=== PATIENT | male | born 1935 | race Two or more races ===

== ENCOUNTER 2020-07-01 22:25 | Inpatient (IN) | payer MEDICARE, MEDICAID ==
[~2020-07-01] VITALS: Ht 165.1 cm; Wt 75.3 kg
--- NOTE | 2020-07-01 22:34 | NUR ---
betty 839 from home c/o rectal bleeing and vomiting. was recently discharge from [facility] for UTI. pt aaox2-3, dominican speaking. placed on monitor, not in acute distress, -sob. vss. pending er provider missy
[2020-07-01] MEDS ORDERED: IV NS 0.9% 500 ML BAG IV ONE (23:00)
[2020-07-01 23:38] LABS: ALANINE AMINOTRANSFERASE 11 U/L (12-78); ALBUMIN 2.2 g/dL (3.4-5.0); ALKALINE PHOSPHATASE 66 U/L (46-116); ASPARTATE AMINOTRANSFERASE 15 U/L (15-37); BILIRUBIN,DIRECT 0.1 mg/dL (0.0-0.2); BILIRUBIN,TOTAL 0.5 mg/dL (0.2-1.0); CALCIUM, SERUM 6.4 mg/dL (8.5-10.1); CARBON DIOXIDE 20 mmol/L (21-32); CHLORIDE 95 mmol/L (98-107); GLUCOSE 248 mg/dL (74-106); POTASSIUM 4.7 mmol/L (3.5-5.1); SODIUM SERUM 133 mmol/L (136-145); TOTAL PROTEIN, SERUM 6.3 g/dL (6.4-8.2)
--- NOTE | 2020-07-01 23:40 | NUR ---
covid swab sent to lab
[2020-07-01 23:42] LABS: CREATININE 13.5 mg/dL (0.6-1.3); UREA NITROGEN, BLOOD 106 mg/dL (7-18)
--- NOTE | 2020-07-01 23:42 | NUR ---
BUN 106 CRE 13.5
[2020-07-02] VITALS (14 sets, daily range): BP systolic 108–137; BP diastolic 48–90
[2020-07-02 00:07] LABS: BASOPHILS # (AUTO) 0.1 /CMM (0.0-0.2); BASOPHILS % (AUTO) 1.4 % (0.0-2.0); LYMPHOCYTES # (AUTO) 1.1 /CMM (0.8-4.8); LYMPHOCYTES % (AUTO) 12.3 % (20.0-44.0); MEAN CORPUSCULAR HGB CONC 34 g/dl (31.0-36.0); MEAN CORPUSCULAR VOLUME 99 fL (80-96); MONOCYTES # (AUTO) 0.7 /CMM (0.1-1.30); MONOCYTES % (AUTO) 7.9 % (2.0-12.0); NEUTROPHILS # (AUTO) 6.9 /CMM (1.8-8.9); NEUTROPHILS % (AUTO) 77.4 % (43.0-81.0); PLATELET COUNT (AUTO) 338 /CMM (150-450); WHITE BLOOD COUNT (AUTO) 8.9 K/uL (4.3-11.0)
[2020-07-02 00:09] LABS: RED BLOOD CELL COUNT(AUTO) 1.72 MIL/uL (4.5-6.0)
[2020-07-02 00:10] LABS: HEMOGLOBIN 5.7 g/dL (13.5-17.5)
[2020-07-02 00:11] LABS: HEMATOCRIT 17 % (39-51)
[2020-07-02] MEDS ORDERED: ACETAMINOPHEN 325 MG TABLET PO PRN (00:30)
[2020-07-02] MEDS ORDERED: ONDANSETRON HCL/PF 4 MG/2 ML VIAL IVP PRN (00:30)
[2020-07-02] MEDS ORDERED: MAG HYDROX/AL HYDROX/SIMETH 30 ML UDC PO PRN (00:30)
[2020-07-02] MEDS ORDERED: ZOLPIDEM TARTRATE 5 MG TABLET PO PRN (00:30)
[2020-07-02] MEDS ORDERED: MAGNESIUM HYDROXIDE 30 ML UDC PO PRN (00:30)
[2020-07-02] MEDS ORDERED: Z GUARD REMEDY 2 OZ OINT TP PRN (00:30)
[2020-07-02] MEDS ORDERED: IV NS 0.9% 1,000 ML IV PRN (00:30)
--- NOTE | 2020-07-02 00:51 | NUR ---
CALL FROM LAB. RAPID COVID NEGATIVE.
--- NOTE | 2020-07-02 00:51 | NUR ---
CALL FROM LAB. RAPID COVID NEGATIVE.
[2020-07-02 01:51] LABS: LYMPHOCYTES % (MANUAL) 7 % (16-48); MONOCYTES % (MANUAL) 9 % (0-11.0); NEUTROPHILS % (MANUAL) 84 (42-76)
--- NOTE | 2020-07-02 02:15 | NUR ---
PATIENT CAME FROM ER, AWAKE, SLIGHTLY LETHARGIC,OPENS EYES WHEN HE TALKED. NO S/S OF DISTRESS NOTED. CALL LIGHT WITHIN REACH. BED ALARM ON. BED IN LOWEST AND LOCKED POSITION. BLOOD TRANSFUSION IS RUNNING AT 125 ML/ HOUR. WITH LEFT ARM AV FISTULA, WITH BRUIT AND THRILL SENSATION. NO RECTAL BLEEDING NOTED. HOB ELEVATED. NPO.
--- NOTE | 2020-07-02 02:16 | NUR ---
REPORT GIVEN TO ABY RN, PT TRANSPORTED 3RD FLOOR
--- NOTE | 2020-07-02 03:50 | NUR ---
BLOOD TRANSFUSION IS FINISHED. NS IS FLUSHING. NO ADVERSE REACTIONS NOTED. V/S TAKEN AND RECORDED.
[2020-07-02] MEDS ORDERED: CEFTRIAXONE 1 G VIAL ONE (05:28)
[2020-07-02] MEDS: CEFTRIAXONE 1 G in IV D5W 50 ML IV SCH (05:54)
--- NOTE | 2020-07-02 07:00 | NUR ---
TIER LIFT OPERATOR OPENING NOTES RECEIVED PT AWAKE IN BED AT THIS TIME. AOX2-3. TUNISIAN SPEAKING. NO SOB NOTED, NO S/O ANY ACUTE DISTRESS NOTED, NO C/O OF PAIN AT THIS TIME. PT NOTED OM 2LPM OXYGEN VIA NC. RESPIRATIONS EVEN AND UNLABORED. PT ON EXTERNAL CARDIA TELE MONITOR READING 1ST DEGREE AVB WITH PACS/PVCS. IV ACCESS IN PHOEBE G#20 INTACT, PATENT AND FLUSHING WELL. JAZMIN AV FISTULA NOTED, AUSCULTATED A BRUIT AND FELT A THRILL. SAFETY PRECAUTIONS IN PLACE AND MAINTAINED AT ALL TIMES. BED IN LOWEST LOCKED POSITION, HOB ELEVATED, SIDE RAILS UP X 2. CALL LIGHT AND TABLE WITHIN REACH. WILL CONTINUE TO MONITOR
--- NOTE | 2020-07-02 07:38 | NUR ---
WOUND CARE CONSULT: PT ADAMANTLY REFUSED TO TURN FOR SKIN ASSESSMENT. ADMISSION PHOTO INDICATES SACRAL SCARRING. RECOMMENDATIONS MADE FOR SKIN PROTECTION. DISCUSSED WITH NURSING STAFF. MD IN AGREEMENT WITH PLAN OF CARE.
[2020-07-02] MEDS ORDERED: INSU100V7 PO (08:42)
[2020-07-02] MEDS ORDERED: FLUC100T8 PO (08:42)
[2020-07-02] MEDS ORDERED: POLY17PO4 PO (08:42)
[2020-07-02] MEDS ORDERED: PANT40TA49 PO (08:42)
[2020-07-02] MEDS ORDERED: TRAM50TA2 PO (08:42)
[2020-07-02] MEDS ORDERED: QUET25TA PO (08:42)
[2020-07-02] MEDS ORDERED: PIOG15TA8 PO (08:42)
[2020-07-02] MEDS ORDERED: LEVE500T20 PO (08:42)
[2020-07-02] MEDS ORDERED: BUDE10.2 INH (08:42)
[2020-07-02] MEDS ORDERED: ASPI-1420 PO (08:42)
[2020-07-02] MEDS ORDERED: INSU100V11 SQ (08:42)
[2020-07-02] MEDS ORDERED: METO25TA20 PO (08:42)
[2020-07-02] MEDS ORDERED: FOLI0.8T2 PO (08:42)
[2020-07-02] MEDS ORDERED: ATOR40TA PO (08:42)
[2020-07-02] MEDS ORDERED: TAMS-12 PO (08:42)
[2020-07-02] MEDS ORDERED: HYDR100T27 PO (08:42)
[2020-07-02] MEDS: HYDROCODONE/APAP 5/325MG TABLET PO PRN ×4 (08:44→21:06)
[2020-07-02] MEDS: PANTOPRAZOLE 40 MG VIAL IV SCH ×2 (08:52→17:18)
--- NOTE | 2020-07-02 08:52 | NUR ---
MS RN NOTES PATIENT COMPLAINED OF BACK PAIN 09/07. PT GIVEN NORCO ORDERED AND HEALTH TEACHING DONE REGARDING RELAXATION TECHNIQUES. PATIENT VERBALIZED UNDERSTANDING AND APPRECIATION. WILL MONITOR PT CLOSELY.
[2020-07-02] MEDS ORDERED: DEXTROSE 50%-WATER 50 ML DISP.SYRIN IV PRN (10:00)
[2020-07-02] MEDS ORDERED: POLYETHYLENE GLYCOL 3350 17 GM POWD.PACK PO PRN (10:00)
[2020-07-02] MEDS: VIT B CMPLX 3/FA/VIT C/BIOTIN 1 TAB TABLET PO SCH (10:15)
--- NOTE | 2020-07-02 10:39 | NUR ---
MS RN NOTES RECEIVED ORDER FROM DR. PAYNE FOR STAT CBC AND PROCEDURE FOR EGD/ ENDOSCOPY. ORDERS READ BACK TO DR. PAYNE AND CARRIED OUT. WILL CONTINUE MONITOR PT.
[2020-07-02] MEDS: LEVETIRACETAM (250 MG) 250 MG TABLET PO SCH ×2 (10:44→17:18)
--- NOTE | 2020-07-02 11:04 | NUR ---
MS RN NOTES RECEIVED A CALL FROM DAUGHTER ANA VAZ [phone]. MD ORDERS RELAYED TO DAUGHTER AND COSENT SECURED VERBALLY FRO PROCEDURE, BLOOD TRANSFUSION AND ANESTHESIA. CONSENT WITNESSED BY ANOTHER RN IMMACULATE. GRAYSON OF OPERATING ROOM NOTIFIED OF DAUGHTER'S CONSENT. AWAITING PICK-UP FOR PROCEDURE. PATIENT NOTIFIED AND VERBALIZED UNDERSTANDING. WILL CONTINUE MONITORING PATIENT.
[2020-07-02 11:31] LABS: BASOPHILS # (AUTO) 0.1 /CMM (0.0-0.2); BASOPHILS % (AUTO) 1.7 % (0.0-2.0); LYMPHOCYTES # (AUTO) 1.3 /CMM (0.8-4.8); LYMPHOCYTES % (AUTO) 15.5 % (20.0-44.0); MEAN CORPUSCULAR HGB CONC 34 g/dl (31.0-36.0); MEAN CORPUSCULAR VOLUME 97 fL (80-96); MONOCYTES # (AUTO) 0.8 /CMM (0.1-1.30); NEUTROPHILS # (AUTO) 5.8 /CMM (1.8-8.9); NEUTROPHILS % (AUTO) 70.8 % (43.0-81.0); PLATELET COUNT (AUTO) 326 /CMM (150-450); WHITE BLOOD COUNT (AUTO) 8.2 K/uL (4.3-11.0)
[2020-07-02 11:39] LABS: RED BLOOD CELL COUNT(AUTO) 1.89 MIL/uL (4.5-6.0)
[2020-07-02] MEDS ORDERED: ANESTHESIA TRAY IN PYXIS 1 EA TRAY MC ONE (11:40)
[2020-07-02 11:42] LABS: HEMATOCRIT 18 % (39-51); HEMOGLOBIN 6.3 g/dL (13.5-17.5)
[2020-07-02] MEDS: BLOOD SUGAR DIAGNOSTIC 1 EACH STRIP VI SCH ×3 (11:45→22:14)
[2020-07-02] MEDS: QUETIAPINE FUMARATE 25 MG TABLET PO SCH ×2 (13:27→17:18)
--- NOTE | 2020-07-02 13:35 | NUR ---
RECEIVED ORDER TO START PT ON DIABETIC DIET PER DR. MORALES. ORDERS ENTERED AND CARRIED OUT. WILL CONTINUE TO MONITOR PATIENT.
--- NOTE | 2020-07-02 15:58 | NUR ---
PATIENT C/O ACHING BACK PAIN ON A PAIN SCALE OF 7/10. VS WNL. PER PT REQUEST, NORCO 5-325MG PO Q4HR PRN FOR PAIN WAS ADMINISTERED PER ORDER. WILL CONTINUE TO MONITOR
--- NOTE | 2020-07-02 16:14 | NUR ---
PT SCHEDULED TO RECEIVE 1 UNIT OF BLOOD TRANSFUSION. PT EDUCATION PROVIDED AND TO REPORT ANY ADVERSE REACTIONS TO TRANSFUSION SUCH ACHES, SOB, FEVER, HIVES, CHILLS. PT VERBALIZED UNDERSTANDING. PRE-TRANSFUSION VS BP 109/64, HR 102, RR 20, T 97.8, SPO2 100% ON 2LPM VIA NC. BLOOD PICKED UP AND VERIFIED WITH REFRIGERATOR CRATER. BLOOD VERIFIED AT PATIENT'S BEDSIDE WITH ANOTHER NURSE AND REFERENCED WITH PATIENTS' IDENTIFIER (NAME/DATE OF ). NO S/O DISCOLORATION, NO CLOTTING, NO LEAKAGE NOTED. WILL CONTINUE WITH PLAN OF CARE
--- NOTE | 2020-07-02 16:15 | NUR ---
PT PROVIDED WITH [facility] BLOOD TRANSFUSION GUIDE. WILL CONTINUE WITH PLAN OF CARE
--- NOTE | 2020-07-02 16:16 | NUR ---
PT STARTED ON BLOOD TRANSFUSION AT THIS TIME. PT EDUCATION PROVIDED TO REPORT ANY ADVERSE REACTIONS TO TRANSFUSION SUCH ACHES, SOB, FEVER, HIVES, CHILLS. PT VERBALIZED UNDERSTANDING. VS BP 108/63, HR 103, RR 20, T 97.9, SPO2 99% ON 2LPM OXYGEN VIA NC. WILL CONTINUE TO MONITOR
--- NOTE | 2020-07-02 16:30 | NUR ---
PT ONGOING BLOOD TRANSFUSION AT THIS TIME. PT REMAINS AFEBRILE, NO REPORTS OF ANY ADVERSE REACTIONS TO TRANSFUSION, NO ACHES, NO SOB, NO FEVER, NO HIVES, NO CHILLS, VS BP 114/68, HR 95, RR 18, T 97.8, SPO2 96% ON 2LPM OXYGEN VIA NC. WILL CONTINUE TO MONITOR
--- NOTE | 2020-07-02 17:00 | NUR ---
PT ONGOING BLOOD TRANSFUSION AT THIS TIME. VS BP 116/71, HR 93, RR 18, T 98.3, SPO2 98% ON 2LPM OXYGEN VIA NC. PT REMAINS AFEBRILE, NO REPORTS OF ANY ADVERSE REACTIONS TO TRANSFUSION, NO ACHES, NO SOB, NO FEVER, NO HIVES, NO CHILLS, WILL CONTINUE TO MONITOR
[2020-07-02] MEDS: METOPROLOL TARTRATE 25 MG TABLET PO SCH (17:19)
[2020-07-02] MEDS: ATORVASTATIN 40 MG TABLET PO SCH (17:21)
[2020-07-02] MEDS: INSULIN REGULAR, HUMAN 100 UNIT/ML 3 ML VIAL SQ PRN (17:38)
--- NOTE | 2020-07-02 18:00 | NUR ---
BLOOD TRANSFUSION ONGOING AT THIS TIME AT THIS TIME. VS BP 137/62, HR 95, RR 18, T 97.6, SPO2 99% ON 2LPM OXYGEN VIA NC. PT REMAINS AFEBRILE, NO REPORTS OF ANY ADVERSE REACTIONS TO TRANSFUSION, NO ACHES, NO SOB, NO FEVER, NO HIVES, NO CHILLS, WILL CONTINUE TO MONITOR
--- NOTE | 2020-07-02 18:20 | NUR ---
BLOOD TRANSFUSION COMPLETED AT THIS TIME. VS BP 117/67, HR 86, RR 18, T 98.7, SPO2 96% ON 2LPM OXYGEN VIA NC. PT REMAINS AFEBRILE, NO REPORTS OF ANY ADVERSE REACTIONS TO TRANSFUSION, NO ACHES, NO SOB, NO FEVER, NO HIVES, NO CHILLS. PT TOLERATED TRANSFUSION WELL. WILL CONTINUE WITH PLAN OF CARE
--- NOTE | 2020-07-02 18:29 | NUR ---
MS RN CLOSING NOTES PT AWAKE IN BED AT THIS TIME. PT REMAINED STABLE THROUGHOUT SHIFT. ALL CARE, NEEDS, TREATMENT AND MEDICATIONS ADMINISTERED ANTICIPATED PER ORDER. PT KEPT CLEAN AND DRY. PAIN CONTROL ADMINISTERED PER ORDER. ASPIRATION, SEIZURE AND SAFETY PRECAUTIONS IN PLACE AND MAINTAINED AT ALL TIMES. BED IN LOWEST LOCKED POSITION, HOB ELEVATED, SIDE RAILS UP X 2 AND PADDED. CALL LIGHT AND TABLE WITHIN REACH. WILL ENDORSE TO SPEECH PATHOLOGY TEACHER NURSE FOR YOGI
--- NOTE | 2020-07-02 19:38 | NUR ---
RN NOTES PT AWAKE IN BED AT THIS TIME. A/OX 2-3. PT REPORTS TO PAIN OR DISCOMFORT AT THIS TIME. NO RESPIRATORY DISTRESS NOTED OR REPORTED.PT ON ROOM AIR TOLERATING WELL. ASPIRATION, SEIZURE AND SAFETY PRECAUTIONS IN PLACE AND MAINTAINED AT ALL TIMES. BED IN LOWEST LOCKED POSITION, HOB ELEVATED, SIDE RAILS UP X 2 AND PADDED. CALL LIGHT AND TABLE WITHIN REACH. WILL CONTINUE TO MONITOR.
[2020-07-02] MEDS: TAMSULOSIN 0.4 MG CAP.SR.24H PO SCH (21:06)
[2020-07-02] MEDS: *INSULIN REGULAR(HUMULIN R)HUM 100 UNIT/ML VIAL SQ PRN (22:17)
[2020-07-02] MEDS: LIDOCAINE 5% (PATCH) 1 EA PATCH TP SCH (22:49)
[2020-07-03] VITALS (7 sets, daily range): BP systolic 104–150; BP diastolic 56–76
[2020-07-03] MEDS: CEFTRIAXONE 1 G in IV D5W 50 ML IV SCH (00:38)
[2020-07-03] MEDS: HYDROCODONE/APAP 5/325MG TABLET PO PRN ×2 (03:14→12:51)
[2020-07-03 06:12] LABS: BASOPHILS # (AUTO) 0.1 /CMM (0.0-0.2); BASOPHILS % (AUTO) 0.8 % (0.0-2.0); EOSINOPHILS % (AUTO) 1.4 % (0.0-6.0); LYMPHOCYTES % (AUTO) 12.4 % (20.0-44.0); MEAN CORPUSCULAR HGB CONC 34 g/dl (31.0-36.0); MEAN CORPUSCULAR VOLUME 94 fL (80-96); MONOCYTES # (AUTO) 0.6 /CMM (0.1-1.30); MONOCYTES % (AUTO) 7.8 % (2.0-12.0); NEUTROPHILS % (AUTO) 77.6 % (43.0-81.0); PLATELET COUNT (AUTO) 329 /CMM (150-450); WHITE BLOOD COUNT (AUTO) 7.8 K/uL (4.3-11.0)
[2020-07-03] MEDS: BLOOD SUGAR DIAGNOSTIC 1 EACH STRIP VI SCH ×4 (06:32→22:32)
--- NOTE | 2020-07-03 06:38 | NUR ---
RN NOTES PT AWAKE IN BED AT THIS TIME. A/OX 2-3. PT REPORTS TO PAIN OR DISCOMFORT AT THIS TIME. NO RESPIRATORY DISTRESS NOTED OR REPORTED.PT ON 2L OF OXYGEN VIA NASAL CANULA TOLERATING WELL. ASPIRATION, SEIZURE AND SAFETY PRECAUTIONS IN PLACE AND MAINTAINED AT ALL TIMES. BED IN LOWEST LOCKED POSITION, HOB ELEVATED, SIDE RAILS UP X 2 AND PADDED. CALL LIGHT AND TABLE WITHIN REACH. PAIN MEDICATION PROVIDED THROUGHOUT SHIFT. PT HAS LIDOCAINE PATH ON THE LOWER BACK WILL ENDORSE TO DAY SHIFT TO REMOVE AFTER 12 HRS. WILL ENDORSE CARE TO DAY SHIFT NURSE.
[2020-07-03 07:02] LABS: HEMATOCRIT 20 % (39-51)
[2020-07-03 07:06] LABS: HEMOGLOBIN 6.7 g/dL (13.5-17.5)
[2020-07-03 07:32] LABS: CALCIUM, SERUM 7.1 mg/dL (8.5-10.1); CARBON DIOXIDE 26 mmol/L (21-32); CHLORIDE 99 mmol/L (98-107); GLUCOSE 105 mg/dL (74-106); PHOSPHORUS 7.1 mg/dL (2.5-4.9); POTASSIUM 4.3 mmol/L (3.5-5.1); SODIUM SERUM 136 mmol/L (136-145); UREA NITROGEN, BLOOD 61 mg/dL (7-18)
--- NOTE | 2020-07-03 07:40 | NUR ---
RN OPENING NOTES RECEIVED RESIDENT AWAKE IN BED, ALERT AND ORIENTED X2, MONGOLIAN SPEAKIG, COVID (-) ON O2 AT 2LPM , NO SOB NOTED NO COMPLAIN OF PAIN OR ANY RESP. DISTRESS, DIAGNOSIS OF SEVERE ANEMIA SECONDARY TO LOWER GI BLEED, ON MONITORING FOR BLEEDING, GASTRIC ULCERS BIOPSIED DONE AWAITING FOR PATHOLOGY REPORT, PATIENT HAS PHOEBE IV LINE#20, AND JAZMIN AV FISTULA (+) WITH BRUITS AND THRILLS, BED IN LOW POSITION, CALL LIGHTS WITHIN REACH, REMIND THE RESIDENT USE THE CALL LIGHTS WHEN NEEDED ASSISTANCE. WILL CONTINUE TO MONITOR.
[2020-07-03 07:45] LABS: CREATININE 9.6 mg/dL (0.6-1.3)
[2020-07-03 08:06] LABS: CHOLESTEROL 72 mg/dL (<200); HDL CHOLESTEROL 17 mg/dL (40-60); TRIGLYCERIDES 144 mg/dL (30-150)
[2020-07-03 08:07] LABS: LDL 34 mg/dL (0-99)
[2020-07-03] MEDS: PANTOPRAZOLE 40 MG VIAL IV SCH ×2 (08:39→17:40)
[2020-07-03] MEDS: VIT B CMPLX 3/FA/VIT C/BIOTIN 1 TAB TABLET PO SCH (08:39)
[2020-07-03] MEDS: METOPROLOL TARTRATE 25 MG TABLET PO SCH ×2 (08:40→17:00)
[2020-07-03] MEDS: QUETIAPINE FUMARATE 25 MG TABLET PO SCH ×3 (08:41→17:40)
[2020-07-03] MEDS: LEVETIRACETAM (250 MG) 250 MG TABLET PO SCH ×2 (08:41→17:40)
[2020-07-03 09:02] LABS: EOSINOPHILS % (MANUAL) 4 % (0-4); LYMPHOCYTES % (MANUAL) 11 % (16-48); MONOCYTES % (MANUAL) 5 % (0-11.0); NEUTROPHILS % (MANUAL) 80 (42-76)
--- NOTE | 2020-07-03 10:33 | NUR ---
RN NOTES PT WITH HGB OF 6.7, PRBC X1, 309 ML STARTED AT 1025 AT [facility] IV SITE PER MD ORDER. PRE BLOOD TRANSFUSION V/S: BP-118/56, P-82, R-18, TEMP-98.2 SPO2-95% ON RA. WILL MONITOR FOR ANY ALLERGIC OR ADVERSE REACTION.
--- NOTE | 2020-07-03 10:45 | NUR ---
RN NOTES PT NO NOTED ALLERGIC/ADVERSE REACTIONS AFTER 15MINUTES OF BLOOD TRANSFUSION. WILL CONTINUE TO MONITOR.
[2020-07-03] MEDS: INSULIN REGULAR, HUMAN 100 UNIT/ML 3 ML VIAL SQ PRN ×2 (12:05→17:21)
--- NOTE | 2020-07-03 14:22 | NUR ---
RN NOTES BLOOD TRANSFUSION OF PRBC X1 BAG (309ML) FINISHED WITH NO ALLERGIC OR ADVERSE REACTIONS NOTED. S/P BLOOD TRANSFUSION V/S CHECKED: BP 150/76, P 95, R 18 AND T98.4. WILL CONTINUE TO MONITOR.
--- NOTE | 2020-07-03 15:05 | NUR ---
MS HORN ADMITTING NOTES PT ADMITTED TO UNIT AT 1400 AMBULATORY ACCOMPANIED BY YESSI FROM DR MACIEL OFFICE. PT IS A/O X4. ABLE TO MAKE NEEDS KNOWN, DENIES PAIN OR DISCOMFORTS. DENIES S/I/HI BUT VERBALIZED THAT SOMETIMES HE HAS AUDITORY HALLUCINATION, NONE AT THIS TIME. ORIENTED TO UNIT AND STAFF. PT ON ROOM AIR, BREATHING EVEN AND UNLABORED. PT IS SMOKER. NO IV ACCESS PER CLINICAL TRIAL PROTOCOL. ALL BELONGINGS CHECKED, COUNTED AND SIGNED FORM. SAFETY MEASURES INITIATED: BED PLACED IN LOWEST LOCKED POSITION WITH SR UP X2. CALL LIGHT PLACED W/IN EASY REACH OF PT. WILL CONTINUE MONITOR PT. Addendum: 07/03/20 at 1843 by JAMAL NOLASCO RN CORRECTION: WRONG PATIENT. SORRY!
[2020-07-03] MEDS: ATORVASTATIN 40 MG TABLET PO SCH (17:40)
--- NOTE | 2020-07-03 18:19 | NUR ---
RN MS CLOSING NOTES: PATIENT WAS PLACE IN BED COMFORTABLY, BED IS IN LOW POSITION, CALL LIGHTS WITHIN REACH, NO COMPLAIN OF PAIN AND DISCOMFORT AT THIS TIME. ALERT AND ORIENTED X2-3, TURKMEN SPEAKING, H&H VALUED AT 6.7, TRANFUSED PRBC WITH NO ALLERGY OR ANY ADVERSE REACTION OBSERVED, PATIENT WAS OBSERVED WITH BLACK TARRY STOOL X 1, ON 02 INHALATION AT 2LPM, V/S ARE WNR, WILL ENDORSE TO INCOMING SHIFT.
--- NOTE | 2020-07-03 19:20 | NUR ---
MS RN OPENING NOTES: RECEIVED PATIENT IN BED, ASLEEP, EASILY AROUSABLE. NO S/S OF DISTRESS NOTED. CALL LIGHT WITHIN REACH. BED ALARM ON. BED IN LOWEST AND LOCKED POSITION. WITH DAUGHTER AT THE BEDSIDE. WITH LEFT UPPER ARM AV FISTULA.
[2020-07-03] MEDS: TAMSULOSIN 0.4 MG CAP.SR.24H PO SCH (22:12)
[2020-07-03] MEDS: LIDOCAINE 5% (PATCH) 1 EA PATCH TP SCH (22:13)
[2020-07-03] MEDS: *INSULIN REGULAR(HUMULIN R)HUM 100 UNIT/ML VIAL SQ PRN (22:30)
[2020-07-04] MEDS: CEFTRIAXONE 1 G in IV D5W 50 ML IV SCH (00:42)
[2020-07-04] MEDS: TRAMADOL HCL 50 MG TABLET PO PRN (05:41)
[2020-07-04 06:16] LABS: BASOPHILS # (AUTO) 0.1 /CMM (0.0-0.2); BASOPHILS % (AUTO) 0.9 % (0.0-2.0); EOSINOPHILS % (AUTO) 1.6 % (0.0-6.0); HEMATOCRIT 25 % (39-51); HEMOGLOBIN 8.5 g/dL (13.5-17.5); LYMPHOCYTES % (AUTO) 13.4 % (20.0-44.0); MEAN CORPUSCULAR HGB CONC 34 g/dl (31.0-36.0); MEAN CORPUSCULAR VOLUME 92 fL (80-96); MONOCYTES # (AUTO) 0.6 /CMM (0.1-1.30); MONOCYTES % (AUTO) 8.4 % (2.0-12.0); NEUTROPHILS # (AUTO) 5.4 /CMM (1.8-8.9); NEUTROPHILS % (AUTO) 75.7 % (43.0-81.0); PLATELET COUNT (AUTO) 309 /CMM (150-450); RED BLOOD CELL COUNT(AUTO) 2.74 MIL/uL (4.5-6.0); WHITE BLOOD COUNT (AUTO) 7.2 K/uL (4.3-11.0)
[2020-07-04 06:39] LABS: CALCIUM, SERUM 6.5 mg/dL (8.5-10.1); CARBON DIOXIDE 23 mmol/L (21-32); CHLORIDE 99 mmol/L (98-107); GLUCOSE 109 mg/dL (74-106); SODIUM SERUM 138 mmol/L (136-145); UREA NITROGEN, BLOOD 70 mg/dL (7-18)
[2020-07-04 06:40] LABS: CREATININE 11.2 mg/dL (0.6-1.3)
[2020-07-04] MEDS: BLOOD SUGAR DIAGNOSTIC 1 EACH STRIP VI SCH ×4 (06:53→21:50)
--- NOTE | 2020-07-04 06:53 | NUR ---
blood sugar [id number]=140, no insulin coverage needed.
--- NOTE | 2020-07-04 07:30 | NUR ---
MS RN OPENING NOTES: REEIVED RESIDNET SLEEP IN BED COMFORTABLY, AROUSABLE TO STIMULI, BED IN LOW POSITION, CALL LIGHTS WITHIN REACH, NO COMPLAIN OF PAIN AND DISCOMFORT AT THIS TIME, V/S ARE WNR, ON MONITORING FOR BLEEDING, NO BLEEDING WAS OBSERVE, WITH PHOEBE ML, AND JAZMIN AV FISTULA, NO BP ON LEFT SIDE, ALL NEEDS MET, WILL CONTINUE TO MONITOR
[2020-07-04 08:00] VITALS: BP 126/74
[2020-07-04] MEDS: PANTOPRAZOLE 40 MG VIAL IV SCH ×2 (08:44→17:51)
[2020-07-04] MEDS: VIT B CMPLX 3/FA/VIT C/BIOTIN 1 TAB TABLET PO SCH (08:44)
[2020-07-04] MEDS: LEVETIRACETAM (250 MG) 250 MG TABLET PO SCH ×2 (08:46→17:51)
[2020-07-04] MEDS: QUETIAPINE FUMARATE 25 MG TABLET PO SCH ×3 (08:46→17:00)
[2020-07-04] MEDS: FLUTICASONE/VILANTEROL 1 EACH BLST.W.DEV IH SCH (08:47)
[2020-07-04] MEDS: METOPROLOL TARTRATE 25 MG TABLET PO SCH ×2 (08:58→17:00)
[2020-07-04] MEDS: INSULIN REGULAR, HUMAN 100 UNIT/ML 3 ML VIAL SQ PRN ×2 (12:32→17:52)
[2020-07-04 16:00] VITALS: BP 114/66
--- NOTE | 2020-07-04 16:33 | NUR ---
RN NOTES PT HAD HEMODIALYSIS VIA JAZMIN ARM AV FISTULA THIS AFTERNOON WITH OUTPUT OF 1,600ML PER HD KORY LEHMAN. PT TOLERATED PROCEDURE WELL. WILL CONTINUE TO MONITOR.
[2020-07-04] MEDS: ATORVASTATIN 40 MG TABLET PO SCH (17:51)
--- NOTE | 2020-07-04 18:22 | NUR ---
RN CLOSING NOTES: RESIDENT WAS PLACE IN BED COMFORTABLY, AROUSABLE TO STIMULI, BED IN LOW POSITION,CALL LIGHTS WITHIN REACH, NO COMPLAIN OF PAIN AND DISCOMFORT, ON MONITORING FOR BLEEDING, NO BLEEDING WAS OBSERVED, WIITH IV LINE ON RU MIDLINE AND JAZMIN AV FISTULA, DONE HEMODIALYSIS TODAY FROM 1310- 1545 RESPONDING WELL, BED IN LOW POSITION, CALL LIGHTS WITHIN REACH, ENDORSE TO THE INCOMING SHIFT.
--- NOTE | 2020-07-04 19:30 | NUR ---
MS RN NOTES RECEIVED ON BED ON UPRIGHT POSITION,BREATHING EASY NO SOB,S/P HEMODIALYSIS TREATMENT 1,600ML TAKEN OUT ON DAYTIME,APPEARS SLEEPY AT THE MOMENT,AROUSABLE TO VERBAL STIMULI,WITH RIGHT UPPER ARM MIDLINE SALINE LOCK,LEFT UPPER ARM AV FISTULA FOR HD ACCESS.ANURIC,FALL PRECAUTION OBSERVED,BED ON LOWEST POSITION AND LOCKED,BED ALARM TRIGGERED,CALL LIGHT LIGHT IN REACH,NEEDS ANTICIPATED.
[2020-07-04 20:00] VITALS: BP 133/79
[2020-07-04] MEDS: TAMSULOSIN 0.4 MG CAP.SR.24H PO SCH (21:50)
--- NOTE | 2020-07-04 22:00 | NUR ---
MS RN NOTES ACCU-CHECK BLOOD SUGAR CHECK 164,COVERED WITH HUMULIN R 3 UNITS PER SLIDING SCALE.
--- NOTE | 2020-07-04 22:00 | NUR ---
MS RN NOTES NOTED NON FOUL SMELL BOWEL MOVEMENT,MODERATE IN [place],GREENISH BROWN IN COLOR.CLEAN AND KEPT DRY.REPOSITION TO COMFORT.
[2020-07-04] MEDS: *INSULIN REGULAR(HUMULIN R)HUM 100 UNIT/ML VIAL SQ PRN (22:01)
[2020-07-04] MEDS: LIDOCAINE 5% (PATCH) 1 EA PATCH TP SCH (22:37)
[2020-07-05] MEDS: TRAMADOL HCL 50 MG TABLET PO PRN (01:39)
--- NOTE | 2020-07-05 05:30 | NUR ---
MS RN NOTES ACCU-CHECK BLOOD SUGAR CHECK 192,COVERED WITH HUMULIN R 3 UNITS PER SLIDING SCALE.,GIVEN SQ ON LEFT LOWER QUADRANT.
[2020-07-05] MEDS: BLOOD SUGAR DIAGNOSTIC 1 EACH STRIP VI SCH ×2 (05:39→11:41)
[2020-07-05] MEDS: INSULIN REGULAR, HUMAN 100 UNIT/ML 3 ML VIAL SQ PRN ×2 (05:41→11:43)
--- NOTE | 2020-07-05 06:48 | NUR ---
MS RN NOTES SLEEPING,PAIN MANAGEMENT EFFECTIVE,NO EVIDENCE OF BLEEDING NOTED.NO EPISODE OF SOB NOTED.ALL DUE MEDS GIVEN.IN NO ACUTE DISTRESS.
--- NOTE | 2020-07-05 08:10 | NUR ---
MS RN OPENING NOTES: RECEIVED RESIDNET SLEEP IN BED COMFORTABLY, AROUSABLE TO STIMULI, BED IN LOW POSITION, CALL LIGHTS WITHIN REACH, NO COMPLAIN OF PAIN AND DISCOMFORT AT THIS TIME, V/S ARE WNR, ON MONITORING FOR BLEEDING, NO BLEEDING WAS OBSERVE, WITH PHOEBE ML, AND JAZMIN AV FISTULA, NO BP ON LEFT SIDE, ALL NEEDS MET, WILL CONTINUE TO MONITOR Addendum: 07/05/20 at 0817 by HUMA ALEXIS RN PRESSED F7 ACCIDENTALLY..WAS NOT ABLE TO EDIT MY OWN NOTE..SEE BELOW MS RN OPENING NOTES: RECEIVED PATIENT LYING IN BED, AWAKE. A/O X2. NAURUAN SPEAKING ONLY. NO PAIN NOTED AT THIS TIME. NO DISTRESS NOTED AT THIS TIME. PATIENT ON ROOM AIR - TOLERATING WELL. NO SOB NOTED. IV ACCESS TO RIGHT UPPER ARM - MIDLINE - INTACT AND PATENT. LEFT AV FISTULA NOTED. NO FLUIDS RUNNING. SAFETY PRECAUTIONS IN PLACE. BED IN LOWEST AND LOCKED POSITION. CALL LIGHT WITHIN REACH. WILL CONTINUE TO MONITOR.
[2020-07-05 08:59] LABS: BASOPHILS # (AUTO) 0.1 /CMM (0.0-0.2); EOSINOPHILS % (AUTO) 1.3 % (0.0-6.0); HEMATOCRIT 27 % (39-51); HEMOGLOBIN 9.1 g/dL (13.5-17.5); LYMPHOCYTES # (AUTO) 0.8 /CMM (0.8-4.8); LYMPHOCYTES % (AUTO) 12.2 % (20.0-44.0); MEAN CORPUSCULAR HGB CONC 34 g/dl (31.0-36.0); MEAN CORPUSCULAR VOLUME 93 fL (80-96); MONOCYTES # (AUTO) 0.4 /CMM (0.1-1.30); MONOCYTES % (AUTO) 6.8 % (2.0-12.0); NEUTROPHILS # (AUTO) 5.1 /CMM (1.8-8.9); NEUTROPHILS % (AUTO) 78.7 % (43.0-81.0); PLATELET COUNT (AUTO) 349 /CMM (150-450); RED BLOOD CELL COUNT(AUTO) 2.93 MIL/uL (4.5-6.0); WHITE BLOOD COUNT (AUTO) 6.4 K/uL (4.3-11.0)
[2020-07-05 09:07] LABS: CALCIUM, SERUM 7.8 mg/dL (8.5-10.1); CARBON DIOXIDE 32 mmol/L (21-32); CHLORIDE 96 mmol/L (98-107); GLUCOSE 137 mg/dL (74-106); POTASSIUM 4.3 mmol/L (3.5-5.1); SODIUM SERUM 135 mmol/L (136-145); UREA NITROGEN, BLOOD 47 mg/dL (7-18)
[2020-07-05 09:15] LABS: CREATININE 8.7 mg/dL (0.6-1.3)
[2020-07-05 09:28] VITALS: BP 146/71
[2020-07-05] MEDS: QUETIAPINE FUMARATE 25 MG TABLET PO SCH ×2 (09:28→12:45)
[2020-07-05] MEDS: LEVETIRACETAM (250 MG) 250 MG TABLET PO SCH (09:28)
[2020-07-05] MEDS: PANTOPRAZOLE 40 MG VIAL IV SCH (09:28)
[2020-07-05] MEDS: METOPROLOL TARTRATE 25 MG TABLET PO SCH (09:28)
[2020-07-05] MEDS: VIT B CMPLX 3/FA/VIT C/BIOTIN 1 TAB TABLET PO SCH (09:28)
[2020-07-05] MEDS: FLUTICASONE/VILANTEROL 1 EACH BLST.W.DEV IH SCH (09:28)
[2020-07-05] MEDS: HYDROCODONE/APAP 5/325MG TABLET PO PRN (09:36)
--- NOTE | 2020-07-05 15:59 | NUR ---
MS OPERATER NOTE PATIENT DISCHARGED VIA PRIVATE CAR @ 1550. PATIENT STABLE, A/O X3. SENEGALESE SPEAKING ONLY. ALL MEDICATIONS GIVEN. PATIENT KEPT CLEAN AND DRY. ALL EXITCARE INSTRUCTIONS AND PATIENT EDUCATION GONE OVER WITH PATIENT AND PATIENT'S SISTER, AND GIVEN TO PATIENT'S SISTER, ANA. PATIENT'S WRISTBAND REMOVED AND PATIENT'S IV REMOVED. PATIENT WAS ACCOMPANIED TO LOBBY VIA WHEELCHAIR BY AMY DELUCA AND PATIENT'S SISTER ANA.
== END 2020-07-05 16:00 | disposition home or self-care (01) | DRG 241 ==
LOC: ER 22:27 → TELE 07-02 01:05 → MED 07-02 11:28
PROVIDERS: ADMIT Internal Medicine; ATTEND Internal Medicine
PROC: 0DB68ZX Excision of Stomach, Via Natural or Artificial Opening Endoscopic, Diagnostic (ICD-10-PCS; principal; 2020-07-02)
PROC: 30233N1 Transfusion of Nonautologous Red Blood Cells into Peripheral Vein, Percutaneous Approach (ICD-10-PCS; 2020-07-02)
PROC: 5A1D70Z Performance of Urinary Filtration, Intermittent, Less than 6 Hours Per Day (ICD-10-PCS; 2020-07-02)
DX: K25.9 Gastric ulcer, unspecified as acute or chronic, without hemorrhage or perforation (principal); E43 Unspecified severe protein-calorie malnutrition; G93.41 Metabolic encephalopathy; E11.22 Type 2 diabetes mellitus with diabetic chronic kidney disease; I12.0 Hypertensive chronic kidney disease with stage 5 chronic kidney disease or end stage renal disease; G40.909 Epilepsy, unspecified, not intractable, without status epilepticus; E86.1 Hypovolemia; E87.1 Hypo-osmolality and hyponatremia; D62 Acute posthemorrhagic anemia; K29.40 Chronic atrophic gastritis without bleeding; N18.6 End stage renal disease; Z99.2 Dependence on renal dialysis; Z20.822 Contact with and (suspected) exposure to COVID-19; Z86.59 Personal history of other mental and behavioral disorders; M19.90 Unspecified osteoarthritis, unspecified site; N40.0 Benign prostatic hyperplasia without lower urinary tract symptoms; J98.11 Atelectasis; Z79.4 Long term (current) use of insulin; Z79.82 Long term (current) use of aspirin; Z79.51 Long term (current) use of inhaled steroids; Z79.899 Other long term (current) drug therapy
CPT/HCPCS: 36415; 71045-TC; 80048-TC; 80061-TC; 80076-TC; 82962-TC; 83605-TC; 83735-TC; 84100-TC; 84484-TC; 85025-TC; 85730-TC; 86850-TC; 87040-TC; 87081-TC; 88305-TC; 88313-TC; 88342; 90935-TC; 97112-TC; 97530-TC; C9113; C9803; G0378; J0696; J1815; J2704; J7030; J7040; J7050; J7060; P9016

== ENCOUNTER 2021-07-10 17:28 | Inpatient (IN) | payer MEDICARE, MEDICAID ==
[~2021-07-10] VITALS: Ht 170.2 cm; Wt 71.7 kg
[~2021-07-10 17:28] MED LIST: ATOR40TA PO; BUDE10.2 INH; FOLI0.8T2 PO; HYDR100T27 PO; INSU100V11 SQ; INSU100V7 PO; LEVE500T20 PO; METO25TA20 PO; PANT40TA49 PO; PIOG15TA8 PO; POLY17PO4 PO; QUET25TA PO; TAMS-12 PO; TRAM50TA2 PO
--- NOTE | 2021-07-10 17:36 | NUR ---
To ER bed 8, ROMELIA RA39 From Home "Cough/SOB/Fever", aaox1, connected to monitor, on oxygen nc 5lpm satting at 97%, awaiting md orders
[2021-07-10] MEDS ORDERED: ACETAMINOPHEN ES 500 MG TABLET ONE (17:47)
[2021-07-10] MEDS ORDERED: CLON0.1T PO (17:51)
[2021-07-10] MEDS ORDERED: SEVE800T28 PO (17:51)
[2021-07-10] MEDS ORDERED: FURO20TA4 PO (17:51)
[2021-07-10] MEDS ORDERED: CEFEPIME 1 GM in IV D5W 50 ML IV ONE (18:00)
[2021-07-10] MEDS ORDERED: ACETAMINOPHEN 650 MG/SUPP.RECT RC ONE (18:00)
[2021-07-10] MEDS ORDERED: VANCOMYCIN 1 GM in IV D5W 250 ML IV ONE (18:00)
--- NOTE | 2021-07-10 18:03 | NUR ---
MOVE SHEET SUBMITTED.
[2021-07-10 18:13] LABS: BASOPHILS # (AUTO) 0.1 K/uL (0.0-0.2); BASOPHILS % (AUTO) 0.7 % (0.0-2.0); EOSINOPHILS % (AUTO) 1.5 % (0.0-6.0); HEMATOCRIT 30 % (39-51); HEMOGLOBIN 9.9 g/dL (13.5-17.5); LYMPHOCYTES # (AUTO) 0.5 K/uL (0.8-4.8); LYMPHOCYTES % (AUTO) 4.2 % (20.0-44.0); MEAN CORPUSCULAR HGB CONC 33 g/dl (31.0-36.0); MEAN CORPUSCULAR VOLUME 100 fL (80-96); MONOCYTES # (AUTO) 1.3 K/uL (0.1-1.30); MONOCYTES % (AUTO) 11.5 % (2.0-12.0); NEUTROPHILS # (AUTO) 8.9 K/uL (1.8-8.9); NEUTROPHILS % (AUTO) 82.1 % (43.0-81.0); PLATELET COUNT (AUTO) 235 K/uL (150-450); RED BLOOD CELL COUNT(AUTO) 2.96 MIL/uL (4.5-6.0); WHITE BLOOD COUNT (AUTO) 10.9 K/uL (4.3-11.0)
[2021-07-10] MEDS ORDERED: ACETAMINOPHEN ES 500 MG TABLET PO ONE (18:30)
[2021-07-10 19:09] LABS: CALCIUM, SERUM 8.4 mg/dL (8.5-10.1); CARBON DIOXIDE 31 mmol/L (21-32); CHLORIDE 99 mmol/L (98-107); CREATININE 5.7 mg/dL (0.6-1.3); GLUCOSE 113 mg/dL (74-106); POTASSIUM 5.4 mmol/L (3.5-5.1); SODIUM SERUM 138 mmol/L (136-145); UREA NITROGEN, BLOOD 32 mg/dL (7-18)
[2021-07-10 19:23] LABS: ALANINE AMINOTRANSFERASE 15 U/L (12-78); ALKALINE PHOSPHATASE 126 U/L (46-116); ASPARTATE AMINOTRANSFERASE 18 U/L (15-37); BILIRUBIN,DIRECT 0.2 mg/dL (0.0-0.2); BILIRUBIN,TOTAL 0.5 mg/dL (0.2-1.0); TOTAL PROTEIN, SERUM 6.9 g/dL (6.4-8.2)
--- NOTE | 2021-07-10 19:50 | NUR ---
URINE COLLECTED AND SENT TO LAB
--- NOTE | 2021-07-10 19:53 | NUR ---
EPIC PAGED PER DR FIELD.
[2021-07-10] MEDS ORDERED: ONDANSETRON HCL/PF 4 MG/2 ML VIAL IVP PRN (20:30)
[2021-07-10] MEDS ORDERED: Z GUARD REMEDY 4 OZ OINT TP PRN (20:30)
[2021-07-10] MEDS ORDERED: DEXTROSE 50%-WATER 50 ML DISP.SYRIN IVP ONE (20:30)
[2021-07-10] MEDS ORDERED: INSULIN REGULAR, HUMAN 100 UNIT/ML 10 ML VIAL IV ONE (20:30)
--- NOTE | 2021-07-10 21:01 | NUR ---
RECIEVED BED 105
[2021-07-10 21:46] LABS: BILIRUBIN,URINE NEGATIVE (NEGATIVE); COLOR,URINE YELLOW (YELLOW); LEUKOCYTE ESTERASE ,URINE NEGATIVE (NEGATIVE); NITRITE, URINE NEGATIVE (NEGATIVE); PH,URINE 8.5 (5.0-8.0); PROTEIN,URINE >=300 mg/dl (NEGATIVE); UGLUCOSE NEGATIVE (NEGATIVE); UROBILINOGEN,URINE 0.2 EU/dL (0.2)
[2021-07-10 21:52] LABS: BACTERIA,URINE RARE /HPF (None Seen); SQUAMOUS EPITHELIAL CELL,UR 0-2 /HPF (None Seen); WBC,URINE 0-2 /HPF (0-3)
--- NOTE | 2021-07-10 21:54 | NUR ---
REPORT GIVEN TO PRINCESS YVONNE HORN FOR YOGI
[2021-07-10] MEDS ORDERED: VANCOMYCIN 1.25 GM in IV D5W 250 ML IV ONE (22:00)
[2021-07-10 22:10] VITALS: BP 92/52
--- NOTE | 2021-07-10 22:14 | NUR ---
PT TRANSFERRED TO YVONNE VIA ACLS PROTOCOL. ALL BELONGINGS WITH PT. VSS. PT TOLERATED TRANSFER WELL
[2021-07-10] MEDS ORDERED: CEFTAZIDIME 1 G VIAL ONE (22:55)
[2021-07-10] MEDS ORDERED: VANCOMYCIN 1 GM VIAL ONE (22:56)
[2021-07-10] MEDS ORDERED: DEXTROSE 50%-WATER 50 ML DISP.SYRIN ONE (22:58)
[2021-07-10] MEDS: CEFEPIME 1 GM in IV D5W 50 ML IV SCH (23:10)
[2021-07-11] VITALS (46 sets, daily range): BP systolic 80–136; BP diastolic 42–81
--- NOTE | 2021-07-11 00:47 | NUR ---
RN Initial Note Endorsement received from LOCKSTITCH BINDER Bryan. Pt received in gurney, awake, Yemeni-speaking. A&O x1, verbal;able to correctly state his name; unable to assess if oriented to time, place, and situation d/t language barrier. Pt noted to be on 4L NC with X8hay63%; no s/s of resp distress, no SOB, non-labored breathing, appears comfortable. Pt attached to external monitor, HR 86, SR. RAC 20G patent and intact; no s/s of infiltration. Bed in lowest position, call light within reach, side rails up x3. Will continue to monitor throughout the night
[2021-07-11] MEDS ORDERED: DEXTROSE 50%-WATER 50 ML DISP.SYRIN IV PRN (01:00)
[2021-07-11] MEDS ORDERED: ALBUTEROL FS 2.5 MG/0.5 ML VIAL.NEB NEB PRN (01:00)
--- NOTE | 2021-07-11 03:13 | NUR ---
RN Note Pt re-assessed and is noted to be more alert, A&O x4.
[2021-07-11] MEDS: hydrALAZINE HCL 50 MG TABLET PO SCH ×3 (05:42→20:46)
[2021-07-11] MEDS: ACETAMINOPHEN 325 MG TABLET PO PRN ×2 (06:08→20:15)
--- NOTE | 2021-07-11 06:10 | NUR ---
RN Note Pt complains of having pain on his head. Tylenol 650 mg PRN was administered at 0608.
--- NOTE | 2021-07-11 06:30 | NUR ---
RN Closing Note Pt in bed awake, slept intermittently throughout the night, A&O x4, cooperative. Pt on 4L NC, O2sat high 90s; shows signs of SOB but no other s/s of resp distress, non-labored breathing; noted to have productive cough, pt able to cough up phlegm, and fine crackles. Pt attached to external monitor, SR throughout the night with HR 72. RAC 20G noted to be leaking; new IV access started on right hand 20G; intact and patent, no s/s of infiltration. Bed in lowest position, call light within reach, side rails up x3. Will endorse to dayshift nurse to continue care.
[2021-07-11 06:45] LABS: BASOPHILS # (AUTO) 0.1 K/uL (0.0-0.2); BASOPHILS % (AUTO) 0.6 % (0.0-2.0); EOSINOPHILS % (AUTO) 2.1 % (0.0-6.0); HEMATOCRIT 31 % (39-51); HEMOGLOBIN 10.5 g/dL (13.5-17.5); LYMPHOCYTES # (AUTO) 0.7 K/uL (0.8-4.8); LYMPHOCYTES % (AUTO) 6.2 % (20.0-44.0); MEAN CORPUSCULAR HGB CONC 33 g/dl (31.0-36.0); MEAN CORPUSCULAR VOLUME 101 fL (80-96); MONOCYTES # (AUTO) 1.2 K/uL (0.1-1.30); MONOCYTES % (AUTO) 11.3 % (2.0-12.0); NEUTROPHILS # (AUTO) 8.4 K/uL (1.8-8.9); NEUTROPHILS % (AUTO) 79.8 % (43.0-81.0); PLATELET COUNT (AUTO) 217 K/uL (150-450); RED BLOOD CELL COUNT(AUTO) 3.11 MIL/uL (4.5-6.0); WHITE BLOOD COUNT (AUTO) 10.5 K/uL (4.3-11.0)
[2021-07-11] MEDS: BUDESONIDE RESPULE INH 0.5 MG/2 ML AMPUL.NEB IH SCH ×2 (07:05→16:00)
--- NOTE | 2021-07-11 07:05 | NUR ---
RN NOTES RECEIVED PT ON BED,ANSWER TO YES AND NO QUESTION, RESPONDS TO PAINFUL STIMULI, PT ON 4L O2 N/C , O2 SAT WNL, ON TELE SR HR IN 80' , IV SITE CLEAN, DRY AND INTACT , BED LOCKED AND IN LOWEST POSITION, CONTINUE TO MONITOR.
[2021-07-11] MEDS ORDERED: VANCOMYCIN POST DIALYSIS 500MG IV PRN ×2 (07:30)
[2021-07-11 07:52] LABS: CARBON DIOXIDE 27 mmol/L (21-32); CHLORIDE 97 mmol/L (98-107); CREATININE 6.8 mg/dL (0.6-1.3); GLUCOSE 71 mg/dL (74-106); MAGNESIUM 1.8 mg/dL (1.8-2.4); PHOSPHORUS 5.2 mg/dL (2.5-4.9); SODIUM SERUM 134 mmol/L (136-145); UREA NITROGEN, BLOOD 42 mg/dL (7-18)
[2021-07-11 07:56] LABS: ABG BASE EXCESS 4.1 mmol/L; ABG PCO2 53.2 mmHg (35.0-45.0); ABG PH 7.372 (7.350-7.450); ABG PO2 83.5 mmHg (75.0-100.0); COHb 0.3 % (0.5-1.5); MetHb 0.3 % (0.0-1.5); O2Hb 95.2 % (94.0-97.0); SITE, ABG Right Radial; VENT MODE, BG NASAL CANNULA
--- NOTE | 2021-07-11 08:00 | NUR ---
RN NOTES PT IS LETHARGIC , RESPONDS TO PAINFUL STIMULI, SBP IN 80'S , [facility] LPN NOTIFIED, ORDER RECEIVED TO TRANSFER TO ICU .
--- NOTE | 2021-07-11 08:00 | NUR ---
RN NOTES PT LETHARGIC , PO MEDS HELD
[2021-07-11] MEDS: BLOOD SUGAR DIAGNOSTIC 1 EACH STRIP IN SCH ×4 (08:17→21:02)
[2021-07-11] MEDS: QUETIAPINE FUMARATE 25 MG TABLET PO SCH ×5 (08:18→17:00)
[2021-07-11] MEDS: VIT B CMPLX 3/FA/VIT C/BIOTIN 1 TAB TABLET PO SCH (08:18)
[2021-07-11] MEDS: SEVELAMER CARBONATE 800 MG TABLET PO SCH ×4 (08:18→17:11)
[2021-07-11] MEDS: LEVETIRACETAM (250 MG) 250 MG TABLET PO SCH ×3 (08:18→17:11)
[2021-07-11] MEDS: HEPARIN SODIUM, PORCINE 5000 UNITS/1 ML VIAL SQ SCH ×2 (08:19→17:11)
[2021-07-11] MEDS: PANTOPRAZOLE 40 MG VIAL IV SCH (08:21)
[2021-07-11] MEDS ORDERED: CLONIDINE HCL 0.1 MG TABLET PO SCH (09:00)
[2021-07-11] MEDS: ALBUTEROL FS 2.5 MG/3 ML VIAL.NEB NEB SCH ×4 (09:06→19:45)
[2021-07-11] MEDS: IPRATROPIUM NEB FS 0.5 MG/2.5 ML AMPUL.NEB NEB PRN (09:06)
[2021-07-11] MEDS ORDERED: NOREPINEPHRINE 8 MG in IV NS 0.9% 242 ML IV PRN ×2 (09:30→10:00)
[2021-07-11] MEDS: HYDROCORTISONE SOD SUCCINATE 100 MG/2 ML VIAL IV SCH ×3 (09:54→20:15)
--- NOTE | 2021-07-11 10:00 | NUR ---
RN NOTES PT TRANSFERED TO ICU OVER FLOW , LEVO STARTED PER PROTOCAL.
--- NOTE | 2021-07-11 13:02 | NUR ---
RN NOTES PT IS MORE AWAKE AND TALKATIVE, STATED HE IS HUNGARY, PT IS ON LEVO AT .02 MCG/KG/MIN AT THIS TIME, CONTINUE TO MONITOR .
--- NOTE | 2021-07-11 14:00 | NUR ---
RN NOTES PT RECEIVING HD AT THIS TIME, CONTINUE TO TITRATE LEVO PER PROTOCAL .
[2021-07-11 16:59] LABS: THYROID STIMULATING HORMONE 0.513 uIU/mL (0.358-3.74)
--- NOTE | 2021-07-11 17:12 | NUR ---
RN NOTES PT FRANCISCO GLYNN ,
[2021-07-11] MEDS: INSULIN REGULAR, HUMAN 100 UNIT/ML 3 ML VIAL SQ PRN ×2 (17:28→21:06)
--- NOTE | 2021-07-11 18:47 | NUR ---
RN NOTES PT REMAINS OFF LEVO AT THIS TIME, BP STABLE, PT IS ALERT AND ABLE TO MAKE NEEDS KNOWN, ICU STATUS, RECEIVED HD ON THIS SHIFT, TOLERATED WELL, SR UP x3M CALL LIGHT WITHIN EASY REACH, BED LOCKED AND IN LOWEST POSITION, WILL ENDORSE TO IMPORT/EXPORT SPECIALIST NURSE FOR CONTINUITY OF CARE .
--- NOTE | 2021-07-11 19:42 | NUR ---
RN NOTE RECEIVED PATIENT IN BED, AWAKE, ALERT, AND VERBALLY RESPONSIVE. [place] SPEAKING. ABLE TO MAKE NEEDS KNOWN. BREATHING EVEN AND UNLABORED. ON 2L/MIN VIA NASAL CANNULA. OCCASIONAL WET COUGH. BEDSIDE MONITOR WORKING WELL. SATURATION OF 95 PERCENT. HR 90 - 100. DENIES CHEST PAIN. PATIENT ALSO WITH RUNNY NOSE. TISSUE PROVIDED AT BEDSIDE. PATIENT WITH LEFT RIGHT UPPER ARM MIDLINE. NO IVF AT THIS TIME. LEVO IS OFF. LEFT UPPER ARM AV FISTULA, NO BLEEDING FROM SITE. COVERED WITH DRY GAUZE. BRUIT AND THRILL PRESENT. ALL BELONGINGS WITHIN REACH. BED LOW, IN LOCKED POSITION, CALL LIGHT WITHIN REACH. WILL CONTINUE TO MONITOR.
[2021-07-11] MEDS: CEFEPIME 1 GM in IV D5W 50 ML IV SCH (20:15)
[2021-07-11] MEDS ORDERED: MUPIROCIN OINT 2% 22 GM TUBE TP SCH (21:00)
[2021-07-11] MEDS: INSULIN GLARGINE, 100 UNIT/ML CARTRIDGE SQ SCH (21:05)
[2021-07-11] MEDS: TAMSULOSIN 0.4 MG CAP.SR.24H PO SCH (21:06)
--- NOTE | 2021-07-11 22:00 | NUR ---
RN NOTE PATIENT REQUESTING FOR PAIN MEDICATION. PATIENT STATES HE WAS EXPERIENCING GENERALIZED BODY PAIN & HEADACHE. ADMINISTERED TYLENOL 650 MG PO. PATIENT ASLEEP AT THIS TIME. EASILY AROUSABLE TO NAME AND TOUCH. WILL CONTINUE TO MONITOR. CALL LIGHT WITHIN REACH.
[2021-07-12] VITALS (12 sets, daily range): BP systolic 116–150; BP diastolic 47–85
[2021-07-12] MEDS: ALBUTEROL FS 2.5 MG/3 ML VIAL.NEB NEB SCH ×4 (00:31→18:55)
[2021-07-12] MEDS: HYDROCORTISONE SOD SUCCINATE 100 MG/2 ML VIAL IV SCH ×3 (04:03→21:46)
[2021-07-12] MEDS: hydrALAZINE HCL 50 MG TABLET PO SCH ×3 (04:55→21:58)
[2021-07-12] MEDS: ACETAMINOPHEN 325 MG TABLET PO PRN ×3 (05:10→23:29)
[2021-07-12] MEDS: HEPARIN SODIUM, PORCINE 5000 UNITS/1 ML VIAL SQ SCH ×2 (08:17→17:32)
[2021-07-12] MEDS: PANTOPRAZOLE 40 MG VIAL IV SCH (08:18)
[2021-07-12] MEDS: VIT B CMPLX 3/FA/VIT C/BIOTIN 1 TAB TABLET PO SCH (08:18)
[2021-07-12] MEDS: LEVETIRACETAM (250 MG) 250 MG TABLET PO SCH ×2 (08:18→17:30)
[2021-07-12] MEDS: QUETIAPINE FUMARATE 25 MG TABLET PO SCH ×3 (08:18→17:30)
[2021-07-12] MEDS: SEVELAMER CARBONATE 800 MG TABLET PO SCH ×3 (08:18→17:30)
[2021-07-12] MEDS: BLOOD SUGAR DIAGNOSTIC 1 EACH STRIP IN SCH ×4 (08:19→22:49)
[2021-07-12] MEDS: BUDESONIDE RESPULE INH 0.5 MG/2 ML AMPUL.NEB IH SCH ×2 (08:33→15:46)
[2021-07-12] MEDS: IPRATROPIUM NEB FS 0.5 MG/2.5 ML AMPUL.NEB NEB PRN (08:33)
[2021-07-12 08:37] LABS: ABG BASE EXCESS -1.2 mmol/L; ABG OXYGEN SATURATION 95.2 % (92.0-98.5); ABG PH 7.326 (7.350-7.450); ABG PO2 86.5 mmHg (75.0-100.0); AaDO2 69.8 mmHg; COHb 0.2 % (0.5-1.5); SITE, ABG Right Radial; VENT MODE, BG 3L NC
[2021-07-12 09:06] LABS: BASOPHILS % (AUTO) 0.3 % (0.0-2.0); HEMATOCRIT 28 % (39-51); HEMOGLOBIN 9.3 g/dL (13.5-17.5); LYMPHOCYTES # (AUTO) 0.6 K/uL (0.8-4.8); LYMPHOCYTES % (AUTO) 7.4 % (20.0-44.0); MEAN CORPUSCULAR HGB CONC 33 g/dl (31.0-36.0); MEAN CORPUSCULAR VOLUME 100 fL (80-96); MONOCYTES # (AUTO) 0.3 K/uL (0.1-1.30); MONOCYTES % (AUTO) 3.2 % (2.0-12.0); NEUTROPHILS # (AUTO) 7.5 K/uL (1.8-8.9); NEUTROPHILS % (AUTO) 89.1 % (43.0-81.0); PLATELET COUNT (AUTO) 213 K/uL (150-450); WHITE BLOOD COUNT (AUTO) 8.4 K/uL (4.3-11.0)
[2021-07-12 09:29] LABS: CALCIUM, SERUM 8.2 mg/dL (8.5-10.1); CARBON DIOXIDE 29 mmol/L (21-32); CHLORIDE 98 mmol/L (98-107); CREATININE 6.2 mg/dL (0.6-1.3); GLUCOSE 178 mg/dL (74-106); PHOSPHORUS 5.4 mg/dL (2.5-4.9); POTASSIUM 5.5 mmol/L (3.5-5.1); SODIUM SERUM 135 mmol/L (136-145); UREA NITROGEN, BLOOD 39 mg/dL (7-18)
--- NOTE | 2021-07-12 16:01 | NUR ---
RN NOTE PT S/P HEMODIALYSIS,TOLERATED WELL. 2L OF FLUIDS REMOVED. WILL CONTINUE TO MONITOR.
--- NOTE | 2021-07-12 17:53 | NUR ---
RN NOTE PT RESTING IN BED, AWAKE , ALERT AND ORIENTED X4. ON O2 VIA NC @2L. NOT IN RESPIRATORY DISTRESS. ON TELE MONITOR WITH SR READING. PHOEBE MIDLINE IN PLACE AND PATENT. PT WITH AVF ACCESS TO JAZMIN FOR HD. PT IS S/P HD. TOLERATED WELL. DUE MEDICATIONS GIVEN. MORNING CARE DONE. NEEDS ATTENDED. SAFETY MEASURES IN PLACE.
--- NOTE | 2021-07-12 19:30 | NUR ---
RN opening notes Pt is sitting in bed comfortably watching TV. Pt is alert and orientedX1-2 with episode of confusion. On 2 L NC. No SOB. No S/S of distress noted. PHOEBE midline is clean, intact and SL. JAZMIN AV fistula is thrill and bruit. Tele monitor showed S. tachy hr at 104. Safety precautions is maintained. Bed at low position, brakes locked, side rails upX3, hob elevated, bed alarm is on and call light is within reach. Will continue to monitor.
--- NOTE | 2021-07-12 20:50 | NUR ---
RN notes Pt is trying to get out the bed, combative, removing equipment monitor phototypesetting and oxygen several times. Pt is A/OX1-2 with episode of confusion and not following directions. Reality orientation provided. informed and notified MD. ordered bilateral soft wrist restraint. Order carry out. Charge nurse is aware and informed. Will continue to monitor.
[2021-07-12] MEDS: CEFEPIME 1 GM in IV D5W 50 ML IV SCH (21:46)
[2021-07-12] MEDS: TAMSULOSIN 0.4 MG CAP.SR.24H PO SCH (21:46)
[2021-07-12] MEDS: INSULIN GLARGINE, 100 UNIT/ML CARTRIDGE SQ SCH (22:51)
[2021-07-12] MEDS: INSULIN REGULAR, HUMAN 100 UNIT/ML 3 ML VIAL SQ PRN (22:52)
--- NOTE | 2021-07-12 23:29 | NUR ---
RN notes Pt is complaining of pain in abdomen and requesting tylenol. Administered tylenol 650mg/po/prn as ordered per Pt's request. will continue to monitor.
[2021-07-13] VITALS: BP 148/74
[2021-07-13] MEDS: ALBUTEROL FS 2.5 MG/3 ML VIAL.NEB NEB SCH ×4 (01:04→20:14)
[2021-07-13] MEDS ORDERED: CALCIUM CARBONATE 500 MG TAB.CHEW PO PRN (02:30)
--- NOTE | 2021-07-13 02:30 | NUR ---
RN notes Pt is complaining of heartburn and requesting meds. Informed and notified Dr. Ta. ordered Tums 500 mg/ po/Q 12 hr/prn as ordered. Order carried out.
[2021-07-13 04:00] VITALS: BP 140/81
[2021-07-13] MEDS: HYDROCORTISONE SOD SUCCINATE 100 MG/2 ML VIAL IV SCH ×3 (04:08→21:09)
[2021-07-13] MEDS: hydrALAZINE HCL 50 MG TABLET PO SCH ×3 (05:01→21:09)
--- NOTE | 2021-07-13 06:39 | NUR ---
RN closing notes Pt is resting in bed comfortably. Pt is alert and orientedX1-2 with episode of confusion. On 2 L NC. No SOB. No S/S of distress noted. PHOEBE midline is clean, intact and SL. JAZMIN AV fistula is thrill and bruit. Tele monitor showed SR with first degree av block HR at 76. Bilateral soft wrist is inplaced, skin is warm to touch and circulation is check all the time. Kept Pt clean, dry and comfortable. Safety precautions is maintained. Bed at low position, brakes locked, side rails upX3, hob elevated, bed alarm is on and call light is within reach. Will endorse to am nurse for YOGI.
[2021-07-13 06:58] LABS: BASOPHILS % (AUTO) 0.2 % (0.0-2.0); HEMATOCRIT 28 % (39-51); HEMOGLOBIN 9.3 g/dL (13.5-17.5); LYMPHOCYTES # (AUTO) 0.5 K/uL (0.8-4.8); LYMPHOCYTES % (AUTO) 5.2 % (20.0-44.0); MEAN CORPUSCULAR HGB CONC 33 g/dl (31.0-36.0); MEAN CORPUSCULAR VOLUME 100 fL (80-96); MONOCYTES # (AUTO) 0.5 K/uL (0.1-1.30); MONOCYTES % (AUTO) 5.7 % (2.0-12.0); NEUTROPHILS # (AUTO) 7.8 K/uL (1.8-8.9); NEUTROPHILS % (AUTO) 88.9 % (43.0-81.0); PLATELET COUNT (AUTO) 204 K/uL (150-450); RED BLOOD CELL COUNT(AUTO) 2.86 MIL/uL (4.5-6.0); WHITE BLOOD COUNT (AUTO) 8.8 K/uL (4.3-11.0)
[2021-07-13 07:00] LABS: CALCIUM, SERUM 8.5 mg/dL (8.5-10.1); CARBON DIOXIDE 27 mmol/L (21-32); CHLORIDE 99 mmol/L (98-107); CREATININE 4.8 mg/dL (0.6-1.3); GLUCOSE 127 mg/dL (74-106); MAGNESIUM 1.9 mg/dL (1.8-2.4); POTASSIUM 4.8 mmol/L (3.5-5.1); SODIUM SERUM 136 mmol/L (136-145); UREA NITROGEN, BLOOD 27 mg/dL (7-18)
--- NOTE | 2021-07-13 07:44 | NUR ---
RN NOTE PT RECEIVED ASLEEP IN BED, RESPONSIVE TO STIMULI. ON O2 VIA NC @2L. NOT IN RESPIRATORY DISTRESS. ON TELE MONITOR WITH SR READING. PHOEBE MIDLINE IN PLACE AND PATENT. PT ON PRESTON SOFT HAND RESTRAINTS, NO SIGNS OF CIRCULATORY COMPLICATIONS NOTED. PT WITH AVF ACCESS TO JAZMIN IN PLACE DRESSING DRY AND INTACT, NO SS OF BLEEDING. SAFETY MEASURES IN PLACE. WILL CONTINUE TO MONITOR.
[2021-07-13 08:00] VITALS: BP 141/67
[2021-07-13] MEDS: BUDESONIDE RESPULE INH 0.5 MG/2 ML AMPUL.NEB IH SCH ×2 (08:18→16:08)
[2021-07-13] MEDS: HEPARIN SODIUM, PORCINE 5000 UNITS/1 ML VIAL SQ SCH ×2 (09:00→17:00)
[2021-07-13] MEDS: BLOOD SUGAR DIAGNOSTIC 1 EACH STRIP IN SCH ×4 (10:07→21:10)
[2021-07-13] MEDS: SEVELAMER CARBONATE 800 MG TABLET PO SCH ×3 (10:07→16:44)
[2021-07-13] MEDS: PANTOPRAZOLE 40 MG TABLET.DR PO SCH (10:07)
[2021-07-13] MEDS: QUETIAPINE FUMARATE 25 MG TABLET PO SCH ×3 (10:07→16:44)
[2021-07-13] MEDS: VIT B CMPLX 3/FA/VIT C/BIOTIN 1 TAB TABLET PO SCH (10:07)
[2021-07-13] MEDS: LEVETIRACETAM (250 MG) 250 MG TABLET PO SCH ×2 (10:08→16:44)
[2021-07-13 12:00] VITALS: BP 111/61
[2021-07-13] MEDS: FLUCONAZOLE (100 MG) 100 MG TABLET PO SCH (12:48)
--- NOTE | 2021-07-13 14:29 | NUR ---
RN NOTE PT HEPARIN SUB Q DOSE HELD THIS AM FOR MINIMAL NOSEBLEEDING. PMD MADE AWARE.
--- NOTE | 2021-07-13 15:17 | NUR ---
RN NOTE CAROTID ARTERY JESUS DONE.
[2021-07-13 16:00] VITALS: BP 134/60
[2021-07-13] MEDS: INSULIN REGULAR, HUMAN 100 UNIT/ML 3 ML VIAL SQ PRN ×2 (16:45→21:12)
--- NOTE | 2021-07-13 18:52 | NUR ---
RN NOTE PT RESTING ASLEEP IN BED, RESPONSIVE TO STIMULI. ON O2 VIA NC @2L. NOT IN RESPIRATORY DISTRESS. ON TELE MONITOR WITH SR READING WITH 1ST DEGREE AV BLOCK. PHOEBE MIDLINE IN PLACE AND PATENT. PT OFF ON PRESTON SOFT HAND RESTRAINTS THIS SHIFT, PT WAS COMPLIANT TO CARE AND MEDICATIONS. PT WITH AVF ACCESS TO JAZMIN IN PLACE DRESSING DRY AND INTACT, NO SS OF BLEEDING. SAFETY MEASURES IN PLACE. WILL CONTINUE TO MONITOR.NEEDS ATTENDED.
--- NOTE | 2021-07-13 19:52 | NUR ---
RN NOTE PATIENT IN BED. ALERT AND ORIENTED X2. PERIODS OF CONFUSION. ON O2 2L VIA NASAL CANNULA. NO S/S OF RESPIRATORY DISTRESS. DENIES ANY PAIN AT THIS TIME. IV ACCESS ON PHOEBE MIDLINE, PATENT AND INTACT. FLUSHED ASEPTICALLY. JAZMIN AV FISTULA NOTED. POSITIVE BRUIT AND THRILL. NO S/S OF INFECTION. BED LOCKED AND IN LOWEST POSITION. CALL LIGHT WITHIN REACH. ALL NEEDS ANTICIPATED.
[2021-07-13 20:00] VITALS: BP 136/70
[2021-07-13] MEDS: CEFEPIME 1 GM in IV D5W 50 ML IV SCH (20:17)
[2021-07-13] MEDS: INSULIN GLARGINE, 100 UNIT/ML CARTRIDGE SQ SCH (21:13)
[2021-07-13] MEDS: TAMSULOSIN 0.4 MG CAP.SR.24H PO SCH (21:14)
[2021-07-14] VITALS: BP 149/65
[2021-07-14] MEDS: ALBUTEROL FS 2.5 MG/3 ML VIAL.NEB NEB SCH ×5 (01:30→20:50)
--- NOTE | 2021-07-14 02:30 | NUR ---
RN NOTE ENDORSED TO OLLIE FOR CONTINUATION OF CARE.
--- NOTE | 2021-07-14 03:00 | NUR ---
RN NOTE REPORT RECEIVED BY KORY LÓPEZ FOR YOGI.
--- NOTE | 2021-07-14 03:30 | NUR ---
RN NOTE IV PLACED ON RIGHT FA #[id number]. LINE FLUSHED, PATENT, AND INTACT WITH GOOD BLOOD RETURN.
[2021-07-14 04:00] VITALS: BP 157/85
[2021-07-14] MEDS: HYDROCORTISONE SOD SUCCINATE 100 MG/2 ML VIAL IV SCH ×3 (04:45→21:32)
[2021-07-14] MEDS: hydrALAZINE HCL 50 MG TABLET PO SCH ×3 (04:48→21:33)
--- NOTE | 2021-07-14 04:53 | NUR ---
RN NOTE APRESOLINE PO FELL ON FLOOR. GRABBED ANOTHER 2 FROM [employer].
--- NOTE | 2021-07-14 06:28 | NUR ---
RN NOTE NO CHANGES IN PT CONDITION. PT ON 2L OF O2 SHOWING NO S/SX OF RESP DISTRESS. PT SHOWING NSR WITH 1ST DEGREE HEART BLOCK ON MONITOR. IV ACCESS NOTED ON RIGHT FA #[id number]. ALL SAFETY MEASURES IMPLEMENTED. ALL RESTRAINTS PROTOCOLS INITIATED AND IMPLEMENTED WELL. PT KEPT CLEAN AND COMFORTABLE. WILL ENDORSE TO MORNING SHIFT RN FOR YOGI.
[2021-07-14 06:52] LABS: BASOPHILS % (AUTO) 0.2 % (0.0-2.0); HEMATOCRIT 28 % (39-51); HEMOGLOBIN 9.4 g/dL (13.5-17.5); LYMPHOCYTES # (AUTO) 0.5 K/uL (0.8-4.8); LYMPHOCYTES % (AUTO) 6.2 % (20.0-44.0); MEAN CORPUSCULAR HGB CONC 33 g/dl (31.0-36.0); MEAN CORPUSCULAR VOLUME 100 fL (80-96); MONOCYTES # (AUTO) 0.6 K/uL (0.1-1.30); MONOCYTES % (AUTO) 7.5 % (2.0-12.0); NEUTROPHILS # (AUTO) 6.9 K/uL (1.8-8.9); NEUTROPHILS % (AUTO) 86.1 % (43.0-81.0); PLATELET COUNT (AUTO) 185 K/uL (150-450); RED BLOOD CELL COUNT(AUTO) 2.84 MIL/uL (4.5-6.0)
[2021-07-14] MEDS: BUDESONIDE RESPULE INH 0.5 MG/2 ML AMPUL.NEB IH SCH ×2 (07:20→13:40)
--- NOTE | 2021-07-14 07:49 | NUR ---
RN OPENING NOTE PATIENT IN BED. ALERT AND ORIENTED X2. PERIODS OF CONFUSION. ON O2 2L VIA NASAL CANNULA. NO S/S OF RESPIRATORY DISTRESS. DENIES ANY PAIN AT THIS TIME. IV ACCESS ON RIT FA 22G. FLUSHED ASEPTICALLY. JAZMIN AV FISTULA NOTED. POSITIVE BRUIT AND THRILL. NO S/S OF INFECTION. PATIENT IS ON BILATERAL SOFT WRIST RESTRAINS DUE 0000. BED LOCKED AND IN LOWEST POSITION. CALL LIGHT WITHIN REACH.
[2021-07-14 07:57] LABS: CHLORIDE 96 mmol/L (98-107); CREATININE 6.6 mg/dL (0.6-1.3); GLUCOSE 127 mg/dL (74-106); PHOSPHORUS 4.6 mg/dL (2.5-4.9); POTASSIUM 4.9 mmol/L (3.5-5.1); SODIUM SERUM 134 mmol/L (136-145); UREA NITROGEN, BLOOD 46 mg/dL (7-18)
[2021-07-14 08:00] VITALS: BP 152/71
[2021-07-14 08:06] LABS: CALCIUM, SERUM 8.6 mg/dL (8.5-10.1); CARBON DIOXIDE 25 mmol/L (21-32)
[2021-07-14] MEDS ORDERED: NEPRO VAN 237 ML CAN PO PRN (09:00)
[2021-07-14] MEDS: BLOOD SUGAR DIAGNOSTIC 1 EACH STRIP IN SCH ×4 (09:12→21:33)
[2021-07-14] MEDS: PANTOPRAZOLE 40 MG TABLET.DR PO SCH (09:13)
[2021-07-14] MEDS: QUETIAPINE FUMARATE 25 MG TABLET PO SCH ×3 (09:13→18:19)
[2021-07-14] MEDS: LEVETIRACETAM (250 MG) 250 MG TABLET PO SCH ×2 (09:13→18:19)
[2021-07-14] MEDS: FLUCONAZOLE (100 MG) 100 MG TABLET PO SCH (09:13)
[2021-07-14] MEDS: VIT B CMPLX 3/FA/VIT C/BIOTIN 1 TAB TABLET PO SCH (09:13)
[2021-07-14] MEDS: SEVELAMER CARBONATE 800 MG TABLET PO SCH ×3 (09:14→18:18)
[2021-07-14] MEDS: HEPARIN SODIUM, PORCINE 5000 UNITS/1 ML VIAL SQ SCH ×2 (09:15→18:24)
[2021-07-14] MEDS: INSULIN REGULAR, HUMAN 100 UNIT/ML 3 ML VIAL SQ PRN ×4 (09:25→21:47)
[2021-07-14 12:00] VITALS: BP 118/52
[2021-07-14 16:00] VITALS: BP 133/79
--- NOTE | 2021-07-14 18:55 | NUR ---
RN CLOSING NOTE NO CHANGES IN PT CONDITION. PT ON 2L OF O2 SHOWING NO S/SX OF RESP DISTRESS. PT SHOWING NSR WITH 1ST DEGREE HEART BLOCK ON MONITOR. IV ON RIGHT FA #22. ALL SAFETY MEASURES IMPLEMENTED. PT KEPT CLEAN AND COMFORTABLE. WILL ENDORSE TO MAJOR ASSEMBLER RN FOR YOGI.
[2021-07-14 20:00] VITALS: BP 138/47
--- NOTE | 2021-07-14 20:00 | NUR ---
YVONNE RN NOTE PT IN BED AWAKE. A/O X 2, CONFUSED AT TIMES. NO DISTRESS OR DISCOMFORT NOTED. DENIES PAIN. ON 2L VIA N/C O2 SAT 96%. SL IN RFA #22G INTACT AND PATENT. NO S/S OF INFILTRATION NOTED. ON TELE SR WITH 1ST DEGREE AV BLOCK HR 90. SIDE RAILS UP X 2 AND CALL LIGHT WITHIN REACH. VSS. CONTINUE TO MONITOR HIM.
[2021-07-14] MEDS: CEFEPIME 1 GM in IV D5W 50 ML IV SCH (20:04)
[2021-07-14] MEDS: IPRATROPIUM NEB FS 0.5 MG/2.5 ML AMPUL.NEB NEB PRN (20:50)
--- NOTE | 2021-07-14 21:16 | NUR ---
YVONNE RN NOTE PT IS REFUSED B TX KEPT ON PUSHING AWAY MASK FOR THE TX. TRIED TO CONVINCE HIM BUT NO LUCK. CONTINUE TO MONITOR HIM.
[2021-07-14] MEDS: TAMSULOSIN 0.4 MG CAP.SR.24H PO SCH (21:32)
[2021-07-14] MEDS: INSULIN GLARGINE, 100 UNIT/ML CARTRIDGE SQ SCH (21:47)
[2021-07-15] VITALS: BP 151/73
[2021-07-15] MEDS: ALBUTEROL FS 2.5 MG/3 ML VIAL.NEB NEB SCH ×4 (01:30→19:57)
[2021-07-15 04:00] VITALS: BP 138/68
[2021-07-15] MEDS: hydrALAZINE HCL 50 MG TABLET PO SCH ×3 (05:54→21:51)
[2021-07-15] MEDS: HYDROCORTISONE SOD SUCCINATE 100 MG/2 ML VIAL IV SCH ×3 (05:55→21:46)
--- NOTE | 2021-07-15 06:30 | NUR ---
YVONNE RN NOTE PT IN BED AWAKE. NO DISTRESS OR DISCOMFORT NOTED. DENIES PAIN. NO CHANGE IN CONDITION DURING THE NIGHT. INCONTINENCE CARE GIVEN. REPOSITION HIM Q2H, KEPT HIM DRY AND CLEAN. SIDE RAILS UP X 3 AND CALL LIGHT WITHIN REACH. WILL ENDORSE TO DAY SHIFT NURSE FOR CONTINUE TO CARE.
[2021-07-15 07:35] LABS: CALCIUM, SERUM 8.6 mg/dL (8.5-10.1); CARBON DIOXIDE 29 mmol/L (21-32); CHLORIDE 97 mmol/L (98-107); CREATININE 5.6 mg/dL (0.6-1.3); GLUCOSE 124 mg/dL (74-106); PHOSPHORUS 2.9 mg/dL (2.5-4.9); POTASSIUM 4.4 mmol/L (3.5-5.1); SODIUM SERUM 135 mmol/L (136-145); UREA NITROGEN, BLOOD 41 mg/dL (7-18)
--- NOTE | 2021-07-15 07:36 | NUR ---
RN OPENING NOTE PATIENT IN BED. ALERT AND ORIENTED X4 . ON O2 2L VIA NASAL CANNULA. NO S/S OF RESPIRATORY DISTRESS. IV ACCESS ON RIHGT FA 22G. FLUSHED ASEPTICALLY. JAZMIN AV FISTULA NOTED. POSITIVE BRUIT AND THRILL. NO S/S OF INFECTION. BED LOCKED AND IN LOWEST POSITION. CALL LIGHT WITHIN REACH.
[2021-07-15] MEDS: BUDESONIDE RESPULE INH 0.5 MG/2 ML AMPUL.NEB IH SCH ×2 (07:56→14:52)
[2021-07-15 08:00] VITALS: BP 137/60
[2021-07-15] MEDS: VIT B CMPLX 3/FA/VIT C/BIOTIN 1 TAB TABLET PO SCH (08:22)
[2021-07-15] MEDS: SEVELAMER CARBONATE 800 MG TABLET PO SCH ×3 (08:22→17:42)
[2021-07-15] MEDS: QUETIAPINE FUMARATE 25 MG TABLET PO SCH ×3 (08:22→17:42)
[2021-07-15] MEDS: LEVETIRACETAM (250 MG) 250 MG TABLET PO SCH ×2 (08:23→17:41)
[2021-07-15] MEDS: FLUCONAZOLE (100 MG) 100 MG TABLET PO SCH (08:23)
[2021-07-15] MEDS: PANTOPRAZOLE 40 MG TABLET.DR PO SCH (08:23)
[2021-07-15] MEDS: INSULIN REGULAR, HUMAN 100 UNIT/ML 3 ML VIAL SQ PRN ×3 (08:26→21:54)
[2021-07-15] MEDS: HEPARIN SODIUM, PORCINE 5000 UNITS/1 ML VIAL SQ SCH ×2 (08:26→17:44)
[2021-07-15] MEDS: BLOOD SUGAR DIAGNOSTIC 1 EACH STRIP IN SCH ×4 (08:27→21:51)
[2021-07-15 09:56] LABS: ABG BASE EXCESS -0.5 mmol/L; ABG PCO2 42.1 mmHg (35.0-45.0); ABG PH 7.384 (7.350-7.450); ABG PO2 66.2 mmHg (75.0-100.0); COHb 0.3 % (0.5-1.5); MetHb 0.1 % (0.0-1.5); O2Hb 92.1 % (94.0-97.0); SITE, ABG Right Radial; VENT MODE, BG N/C
--- NOTE | 2021-07-15 10:00 | NUR ---
RN NOTE RECEIVED CALL FROM CT REGARDING PATIENTS SCAN: 1. PATIENT NEEDS TO HAVE HD AFTER SCAN DUE TO ELEVATED CREATININE- HD IS SCHEDULED FOR TOMORROW SCAN WILL BED ONE IN AM HD IN THE AFTERNOON 2. CONSENT NEEDED- CONSENT IN CHART 3. 20G IV ACCESS NEEDED- MIDLINE IN THE RIGHT UPPER ARM 18G PLACED 4. ADD CTA OF BRAIN DUE TO MD REQUESTING CT SCAN OF NECK AND HEAD.- ORDER PLACED
[2021-07-15 12:00] VITALS: BP 135/61
[2021-07-15] MEDS: ASPIRIN EC 81 MG TABLET.DR PO SCH (12:30)
[2021-07-15] MEDS ORDERED: GADOTERATE MEGLUMINE 10 MMOL/20 ML VIAL IV ONE (13:51)
[2021-07-15 16:00] VITALS: BP 134/69
--- NOTE | 2021-07-15 16:00 | NUR ---
RN NOTE RECEIVED REPORT FROM RADHA HORN FOR CONTINUITY OF CARE. PATIENT IN BED, SLEEPING. BREATHING EVEN AND UNLABORED. ON O2 2L VIA NASAL CANNULA. NO S/S OF RESPIRATORY DISTRESS. IV ACCESS ON RIGHT FA 22G. FLUSHED ASEPTICALLY. JAZMIN AV FISTULA NOTED. POSITIVE BRUIT AND THRILL. NO S/S OF INFECTION. ALL SAFETY MEASURES IMPLEMENTED. BED LOCKED AND IN LOWEST POSITION. CALL LIGHT WITHIN REACH.
--- NOTE | 2021-07-15 18:54 | NUR ---
RN CLOSING NOTE NO SIGNIFICANT CHANGES THROUGHOUT SHIFT. PATIENT IN BED, AWAKE, ALERT AND ORIENTED X4 . ON O2 2L VIA NASAL CANNULA. NO S/S OF RESPIRATORY DISTRESS. ALL DUE MEDS GIVEN ORDERED. KEPT PATIENT CLEAN DRY AND COMFORTABLE. ALL NEEDS ATTENDED. ALL SAFETY MEASURES IMPLEMENTED. BED LOCKED AND IN LOWEST POSITION. CALL LIGHT WITHIN REACH. WILL ENDORSE TO ONCOMING NURSE FOR CONTINUITY OF CARE.
--- NOTE | 2021-07-15 19:45 | NUR ---
RN OPENING NOTES: RECEIVED PATIENT IN BED, AWAKE, ALERT AND ORIENTED X3-4 AND VERBALLY RESPONSIVE. ON O2 2L VIA N/C AND PT TOLERATED WELL. IV ACCESS ON RFA#22G AND PHOEBE MIDLINE#18G INTACT AND PATENT. NO S/S OF INFILTRATIONS. NO C/O PAIN OR DISCOMFORT. NO ACUTE DISTRESS. ALL SAFETY MEASURES IN PLACE. BED IN LOWEST POSITION AND LOCKED. SIDE RAILS UP X2, PLACE CALL LIGHT WITHIN REACH. WILL CONTINUE TO MONITOR
[2021-07-15 20:00] VITALS: BP 134/63
[2021-07-15] MEDS: CEFEPIME 1 GM in IV D5W 50 ML IV SCH (21:07)
[2021-07-15 21:28] LABS: BASOPHILS # (AUTO) 0.1 K/uL (0.0-0.2); BASOPHILS % (AUTO) 0.7 % (0.0-2.0); HEMATOCRIT 29 % (39-51); HEMOGLOBIN 9.4 g/dL (13.5-17.5); LYMPHOCYTES # (AUTO) 0.6 K/uL (0.8-4.8); MEAN CORPUSCULAR HGB CONC 33 g/dl (31.0-36.0); MEAN CORPUSCULAR VOLUME 101 fL (80-96); MONOCYTES # (AUTO) 0.7 K/uL (0.1-1.30); MONOCYTES % (AUTO) 9.5 % (2.0-12.0); NEUTROPHILS # (AUTO) 6.3 K/uL (1.8-8.9); NEUTROPHILS % (AUTO) 81.8 % (43.0-81.0); PLATELET COUNT (AUTO) 154 K/uL (150-450); RED BLOOD CELL COUNT(AUTO) 2.82 MIL/uL (4.5-6.0); WHITE BLOOD COUNT (AUTO) 7.7 K/uL (4.3-11.0)
[2021-07-15] MEDS: TAMSULOSIN 0.4 MG CAP.SR.24H PO SCH (21:47)
[2021-07-15] MEDS: INSULIN GLARGINE, 100 UNIT/ML CARTRIDGE SQ SCH (21:53)
--- NOTE | 2021-07-15 22:00 | NUR ---
RN NOTES: PT'S BLOOD SUGAR 252, 10 UNITS OF LANTUS AND 6 UNITS OF REGULAR INSULIN GIVEN. NO S/S OF HYPER/HYPOGLYCEMIA. WILL CONTINUE TO MONITOR
[2021-07-16] VITALS: BP 131/60
[2021-07-16] MEDS: ALBUTEROL FS 2.5 MG/3 ML VIAL.NEB NEB SCH ×4 (01:30→19:50)
[2021-07-16 04:00] VITALS: BP 114/72
[2021-07-16] MEDS: HYDROCORTISONE SOD SUCCINATE 100 MG/2 ML VIAL IV SCH ×3 (05:02→21:08)
[2021-07-16] MEDS: hydrALAZINE HCL 50 MG TABLET PO SCH ×3 (05:02→21:09)
--- NOTE | 2021-07-16 06:40 | NUR ---
RN CLOSING NOTES: PATIENT IN BED SLEEPING BUT EASILY AROUSABLE, ALERT AND ORIENTED X 3-4 AND VERBALLY RESPONSIVE. ON O2 2L VIA N/C, O2 SAT 100% AND PT TOLERATED WELL. IV ACCESS ON RFA#22G AND PHOEBE MIDLINE#18G INTACT AND PATENT. NO S/S OF INFILTRATIONS. NO C/O PAIN OR DISCOMFORT. NO ACUTE DISTRESS. ALL DUE MEDS GIVEN ORDERED. ALL SAFETY MEASURES IN PLACE. BED IN LOWEST POSITION AND LOCKED. SIDE RAILS UP X2, PLACE CALL LIGHT WITHIN REACH. WILL ENDORSE TO MORNING SHIFT NURSE.
[2021-07-16 07:06] LABS: CALCIUM, SERUM 8.9 mg/dL (8.5-10.1); CARBON DIOXIDE 28 mmol/L (21-32); CHLORIDE 97 mmol/L (98-107); GLUCOSE 123 mg/dL (74-106); POTASSIUM 4.8 mmol/L (3.5-5.1); SODIUM SERUM 134 mmol/L (136-145); UREA NITROGEN, BLOOD 63 mg/dL (7-18)
[2021-07-16 07:21] LABS: CREATININE 7.5 mg/dL (0.6-1.3)
--- NOTE | 2021-07-16 07:29 | NUR ---
RN OPENING NOTE PATIENT IN BED. ALERT AND ORIENTED X4 . ON O2 2L VIA NASAL CANNULA. NO S/S OF RESPIRATORY DISTRESS. IV ACCESS ON RIGHT FA 22G. FLUSHED ASEPTICALLY. JAZMIN AV FISTULA NOTED. POSITIVE BRUIT AND THRILL. NO S/S OF INFECTION. BED LOCKED AND IN LOWEST POSITION. CALL LIGHT WITHIN REACH.
--- NOTE | 2021-07-16 07:30 | NUR ---
RN NOTE RECEIVED CRITICAL LAB FOR PATIENT CREATININE 7.5 LAST CREATINE WAS 5.6 ON 07/15/2021. PATIENT IS SCHEDULED FOR HD TODAY. NO FURTHER ACTION.
--- NOTE | 2021-07-16 07:52 | NUR ---
RN NOTE CALLED RADIOLOGY, ASKED TO MOVE PATIENT UP ON LIST FOR CTA. DUE TO SCAN BEING DONE WITH CONTRAST AND SHOULD BE DONE PRIOR TO HD. PATIENT WILL BE MOVED UP ON LIST TO HAVE SCAN DONE THIS MORNING
[2021-07-16 08:00] VITALS: BP 141/70
[2021-07-16] MEDS: SEVELAMER CARBONATE 800 MG TABLET PO SCH ×3 (08:17→17:51)
[2021-07-16] MEDS: ASPIRIN EC 81 MG TABLET.DR PO SCH (08:17)
[2021-07-16] MEDS: HEPARIN SODIUM, PORCINE 5000 UNITS/1 ML VIAL SQ SCH ×2 (08:17→17:51)
[2021-07-16] MEDS: FLUCONAZOLE (100 MG) 100 MG TABLET PO SCH (08:18)
[2021-07-16] MEDS: QUETIAPINE FUMARATE 25 MG TABLET PO SCH ×3 (08:18→17:48)
[2021-07-16] MEDS: LEVETIRACETAM (250 MG) 250 MG TABLET PO SCH ×2 (08:18→17:47)
[2021-07-16] MEDS: VIT B CMPLX 3/FA/VIT C/BIOTIN 1 TAB TABLET PO SCH (08:18)
[2021-07-16] MEDS: PANTOPRAZOLE 40 MG TABLET.DR PO SCH (08:18)
[2021-07-16] MEDS: BLOOD SUGAR DIAGNOSTIC 1 EACH STRIP IN SCH ×4 (08:18→22:55)
[2021-07-16] MEDS: INSULIN REGULAR, HUMAN 100 UNIT/ML 3 ML VIAL SQ PRN ×4 (08:19→22:55)
[2021-07-16] MEDS ORDERED: IOHEXOL-350 100 ML VIAL IV ONE (08:27)
[2021-07-16] MEDS ORDERED: CT SWABBABLE VALVE TRANS SET 1 EA INFUS.SET MC ONE (08:27)
[2021-07-16] MEDS ORDERED: IV NS 0.9% 250 ML IV ONE (08:27)
[2021-07-16] MEDS: BUDESONIDE RESPULE INH 0.5 MG/2 ML AMPUL.NEB IH SCH ×2 (09:06→15:00)
[2021-07-16 12:00] VITALS: BP 149/64
[2021-07-16] MEDS: ACETAMINOPHEN 325 MG TABLET PO PRN (12:36)
--- NOTE | 2021-07-16 15:36 | NUR ---
RN NOTE PATIENT EXPRESSED GENERALIZED 8/[address] [place]. RECEIVED ORDER FOR MORPHINE 2MG IV Q4HR PRN FOR PAIN. ORDERS PLACED.
[2021-07-16] MEDS: MORPHINE SULFATE INJ 2 MG/ML DISP.SYRIN IV PRN (15:53)
[2021-07-16 16:00] VITALS: BP 132/64
--- NOTE | 2021-07-16 18:42 | NUR ---
RN CLOSING NOTE PATIENT IN BED, AWAKE, ALERT AND ORIENTED X4 . ON ROOM AIR. PT HAD HEMODIALYSIS PERFORMED TODAY WITH 2 LITERS REMOVED, No COMPLICATIONS. NO S/S OF RESPIRATORY DISTRESS. ALL DUE MEDS GIVEN ORDERED. KEPT PATIENT CLEAN DRY AND COMFORTABLE. ALL NEEDS ATTENDED. ALL SAFETY MEASURES IMPLEMENTED. BED LOCKED AND IN LOWEST POSITION. CALL LIGHT WITHIN REACH. WILL ENDORSE TO ONCOMING NURSE FOR CONTINUITY OF CARE.
--- NOTE | 2021-07-16 19:51 | NUR ---
RT PTY RECVD AWAKE AND ALERT, ON ROOM AIR. PLACED ON 3 LPM NASAL CANNULA AFTER NEB TX. NO SOB OR RESPIRATORY DISTRESS NOTED AT THIS TIME.
--- NOTE | 2021-07-16 19:55 | NUR ---
RN NOTES RECEIVED CARE OF PATIENT WHILE PATIENT IN BED, A/O X4, POLISH SPEAKING, ABLE TO MAKE NEEDS KNOWN. PATIENT IN NO DISCOMFORT AT THIS TIME. PATIENT ON ROOM AIR, BREATHING EVEN AND UNLABORED, O2 SAT 96%. NO SIGNIFICANT FINDINGS UPON INITIAL NURSING ASSESSMENTS. ALL SAFETY MEASURES IMPLEMENTED. BED LOCKED AND IN LOWEST POSITION. CALL LIGHT WITHIN REACH. WILL CONTINUE TO MONITOR PATIENT.
[2021-07-16 20:00] VITALS: BP 157/74
[2021-07-16] MEDS: CEFEPIME 1 GM in IV D5W 50 ML IV SCH (21:08)
[2021-07-16] MEDS: TAMSULOSIN 0.4 MG CAP.SR.24H PO SCH (21:09)
[2021-07-16] MEDS: INSULIN GLARGINE, 100 UNIT/ML CARTRIDGE SQ SCH (22:53)
[2021-07-17] VITALS: BP 151/57
[2021-07-17] MEDS: MORPHINE SULFATE INJ 2 MG/ML DISP.SYRIN IV PRN
[2021-07-17] MEDS: ALBUTEROL FS 2.5 MG/3 ML VIAL.NEB NEB SCH ×3 (02:05→14:03)
[2021-07-17 04:00] VITALS: BP 155/70
[2021-07-17] MEDS: HYDROCORTISONE SOD SUCCINATE 100 MG/2 ML VIAL IV SCH (05:10)
[2021-07-17] MEDS: hydrALAZINE HCL 50 MG TABLET PO SCH ×2 (05:11→12:53)
--- NOTE | 2021-07-17 06:22 | NUR ---
RN NOTES WILL ENDORSE CARE OF PATIENT TO AM NURSE WHILE PATIENT IN BED, ASLEEP, WAKES UP TO NAME. PATIENT IS A/O X4, ABLE TO MAKE NEEDS KNOWN. ALL PATIENT NEEDS MET THROUGHOUT SHIFT. ALL DUE MEDS GIVEN. NO SIGNIFICANT FINDINGS UPON ALL NURSING ASSESSMENTS. ALL SAFETY PRECAUTIONS IMPLEMENTED PER HOSPITAL PROTOCOLS. WILL ENDORSE TO AM NURSE FOR CONTINUITY OF CARE.
[2021-07-17 06:41] LABS: BASOPHILS % (AUTO) 0.1 % (0.0-2.0); EOSINOPHILS % (AUTO) 0.2 % (0.0-6.0); HEMATOCRIT 28 % (39-51); HEMOGLOBIN 9.4 g/dL (13.5-17.5); MEAN CORPUSCULAR HGB CONC 34 g/dl (31.0-36.0); MEAN CORPUSCULAR VOLUME 99 fL (80-96); MONOCYTES # (AUTO) 0.7 K/uL (0.1-1.30); MONOCYTES % (AUTO) 9.8 % (2.0-12.0); NEUTROPHILS # (AUTO) 5.7 K/uL (1.8-8.9); NEUTROPHILS % (AUTO) 76.9 % (43.0-81.0); PLATELET COUNT (AUTO) 144 K/uL (150-450); RED BLOOD CELL COUNT(AUTO) 2.84 MIL/uL (4.5-6.0); WHITE BLOOD COUNT (AUTO) 7.4 K/uL (4.3-11.0)
[2021-07-17 07:23] LABS: CALCIUM, SERUM 8.8 mg/dL (8.5-10.1); CARBON DIOXIDE 29 mmol/L (21-32); CHLORIDE 91 mmol/L (98-107); CREATININE 5.9 mg/dL (0.6-1.3); GLUCOSE 89 mg/dL (74-106); MAGNESIUM 2.1 mg/dL (1.8-2.4); POTASSIUM 4.6 mmol/L (3.5-5.1); SODIUM SERUM 130 mmol/L (136-145); UREA NITROGEN, BLOOD 54 mg/dL (7-18)
--- NOTE | 2021-07-17 07:30 | NUR ---
RN OPENING NOTE RECEIVED PATIENT ASLEEP IN BED, A/O X4, IRISH SPEAKING, ABLE TO MAKE NEEDS KNOWN, AND TRANSLATION ASSISTANCE C/O SANDRINE CROSS. PATIENT NOT IN DISTRESS AT THIS TIME. PATIENT ON ROOM AIR, BREATHING EVEN AND UNLABORED, O2 SAT 95%. WITH RIGHT UPPER ARM MIDLINE GAUGE 18, INTACT AND PATENT. ALL SAFETY MEASURES IMPLEMENTED. BED LOCKED AND IN LOWEST POSITION. CALL LIGHT WITHIN REACH. WILL CONTINUE TO MONITOR PATIENT.
[2021-07-17] MEDS: BUDESONIDE RESPULE INH 0.5 MG/2 ML AMPUL.NEB IH SCH ×2 (07:54→14:03)
[2021-07-17 08:00] VITALS: BP 155/70
[2021-07-17] MEDS: BLOOD SUGAR DIAGNOSTIC 1 EACH STRIP IN SCH ×3 (08:07→19:09)
[2021-07-17] MEDS ORDERED: CLOPIDOGREL BISULFATE 75 MG TABLET PO SCH (09:00)
[2021-07-17] MEDS: FLUCONAZOLE (100 MG) 100 MG TABLET PO SCH (09:08)
[2021-07-17] MEDS: LEVETIRACETAM (250 MG) 250 MG TABLET PO SCH ×2 (09:08→19:16)
[2021-07-17] MEDS: SEVELAMER CARBONATE 800 MG TABLET PO SCH ×3 (09:09→19:15)
[2021-07-17] MEDS: QUETIAPINE FUMARATE 25 MG TABLET PO SCH ×3 (09:09→19:16)
[2021-07-17] MEDS: VIT B CMPLX 3/FA/VIT C/BIOTIN 1 TAB TABLET PO SCH (09:09)
[2021-07-17] MEDS: ASPIRIN EC 81 MG TABLET.DR PO SCH (09:09)
[2021-07-17] MEDS: PANTOPRAZOLE 40 MG TABLET.DR PO SCH (09:09)
[2021-07-17] MEDS: HEPARIN SODIUM, PORCINE 5000 UNITS/1 ML VIAL SQ SCH ×2 (09:14→19:16)
[2021-07-17] MEDS ORDERED: CLOP75TA15 PO (11:13)
[2021-07-17] MEDS ORDERED: Aspirin Ec PO (11:13)
[2021-07-17] MEDS ORDERED: FLUC100T8 PO (11:17)
[2021-07-17] MEDS ORDERED: PRED20TA PO (11:21)
[2021-07-17] MEDS ORDERED: predniSONE 20 MG TABLET PO SCH (11:30)
[2021-07-17] MEDS: INSULIN REGULAR, HUMAN 100 UNIT/ML 3 ML VIAL SQ PRN (12:38)
[2021-07-17 16:10] VITALS: BP 132/63
[2021-07-17] MEDS ORDERED: LIDOCAINE/PRILOCAINE (5GM) 5 GM TUBE TP PRN (16:30)
--- NOTE | 2021-07-17 19:30 | NUR ---
RN CLOSING NOTE: PATIENT IS STABLE THROUGHOUT THE SHIFT. PREPARING FOR DISCHARGE TO HOME. NOT IN DISTRESS. MIDLINE REMOVED. WILL ENDORSE TO ENTERPRISE ANALYST NURSE.
[2021-07-17] MEDS: CEFEPIME 1 GM in IV D5W 50 ML IV SCH (19:53)
== END 2021-07-17 20:02 | disposition home health service (06) | DRG 720 ==
LOC: ER 17:30 → TELE1 21:41 → TELE-TD 23:55 → ICUOV 07-11 10:39 → TELE-TD 07-12 09:53 → TELE1 07-15 10:10 → MEDSG1 07-17 05:26
PROVIDERS: ADMIT Registered Nurse; ATTEND Internal Medicine
PROC: 5A1D70Z Performance of Urinary Filtration, Intermittent, Less than 6 Hours Per Day (ICD-10-PCS; principal; 2021-07-11)
PROC: 05H933Z Insertion of Infusion Device into Right Brachial Vein, Percutaneous Approach (ICD-10-PCS; 2021-07-11)
DX: A41.9 Sepsis, unspecified organism (principal); J96.21 Acute and chronic respiratory failure with hypoxia; G93.6 Cerebral edema; R65.21 Severe sepsis with septic shock; G92.8 Other toxic encephalopathy; J15.6 Pneumonia due to other Gram-negative bacteria; E87.2 Acidosis; N18.6 End stage renal disease; D63.1 Anemia in chronic kidney disease; I13.2 Hypertensive heart and chronic kidney disease with heart failure and with stage 5 chronic kidney disease, or end stage renal disease; J15.9 Unspecified bacterial pneumonia; E11.22 Type 2 diabetes mellitus with diabetic chronic kidney disease; I50.9 Heart failure, unspecified; Z20.822 Contact with and (suspected) exposure to COVID-19; Z99.2 Dependence on renal dialysis; Z79.4 Long term (current) use of insulin; Z79.899 Other long term (current) drug therapy; Y95 Nosocomial condition; E87.5 Hyperkalemia; Z87.19 Personal history of other diseases of the digestive system; F20.9 Schizophrenia, unspecified; N40.0 Benign prostatic hyperplasia without lower urinary tract symptoms; Z79.51 Long term (current) use of inhaled steroids; G40.909 Epilepsy, unspecified, not intractable, without status epilepticus; J20.9 Acute bronchitis, unspecified; J96.22 Acute and chronic respiratory failure with hypercapnia; G93.89 Other specified disorders of brain; Z85.841 Personal history of malignant neoplasm of brain; Z98.890 Other specified postprocedural states; J44.0 Chronic obstructive pulmonary disease with (acute) lower respiratory infection; I65.21 Occlusion and stenosis of right carotid artery; B37.9 Candidiasis, unspecified
CPT/HCPCS: 36415; 36600; 70450-TC; 70496-TC; 70498-TC; 70553-TC; 71045-TC; 80048-TC; 80076-TC; 80177; 80202-TC; 81001; 82533; 82803-TC; 82962-TC; 83605-TC; 83735-TC; 83880; 84100-TC; 84443-TC; 84484-TC; 85025-TC; 85730-TC; 86706; 87040-TC; 87070-TC; 87081-TC; 87086-TC; 87186-TC; 87340; 90935-TC; 93307-TC; 93880-TC; 94760-TC; 94761-TC; 94799-TC; A9575; C9113; C9803; G0378; J0692; J0713; J1644; J1720; J1815; J2270; J3370; J7030; J7050; J7060; Q9967